=== PATIENT | female | born 1935 | race Caucasian/White ===

== ENCOUNTER 2018-10-29 10:40 | Inpatient (IN) ==
[2018-10-29] MEDS ORDERED: NS 1,000 ML IV ONE (11:06)
--- NOTE | 2018-10-29 11:23 | PROVIDER DOCUMENTATION ---
This chart was entered by Faith Hoffman Scribe, acting as scribe for Colette Real MD. HPI-Neurological Disorder - General Chief Complaint: Stroke-Like Symptoms Stated Complaint: POSS STROKE Time Seen by Provider: 10/29/18 10:56 Source: patient, family Allergies/Adverse Reactions: Patient Allergies Allergy/AdvReac Type Severity Reaction Status Date / Time codeine [Codeine] Allergy Severe RASH Verified 02/04/18 13:49 naproxen sodium * Allergy Severe SWELLING Verified 02/04/18 13:49 [From Aleve] red dye Allergy Severe RASH Verified 02/04/18 13:49 Sulfa (Sulfonamide Allergy Severe RASH Verified 02/04/18 13:49 Antibiotics) Home Medications: Home Medication List Medication Instructions Recorded Confirmed Last Taken Type Albuterol Sulfate Inhaler 2 puff INH QAM 03/17/13 11/18/16 11/18/16 10:00 History [Ventolin Hfa] Albuterol Sulfate [Proair Hfa] 8.5 gm IH HS 03/17/13 11/18/16 11/17/16 20:00 History Aspirin EC 81 mg PO DAILY 03/17/13 11/18/16 11/18/16 10:00 History Cholecalciferol (Vit D3) [Vitamin 2,000 unit PO DAILY 03/17/13 11/18/16 10:00 History D3] Cyanocobalamin S.l. [Vitamin B-12] 2,500 microgm SL DAILY 03/17/13 11/18/1603/29 10:00 History Folic Acid 1 mg PO DAILY 03/17/13 11/18/16 11/18/16 10:00 History Glipizide [Glipizide ER] 10 mg PO DAILY 03/17/13 11/18/16 11/18/16 10:00 History Insulin Glargine [Lantus] 20 unit SUBQ BID PC 03/17/13 11/18/16 11/18/16 10:00 History Metformin HCl [Metformin HCl ER] 1,000 mg PO BID 03/17/13 11/18/16 11/18/16 10: 00 History Cephalexin [Keflex] 500 mg PO Q6HR #28 capsule 11/07/16 11/18/16 11/18/16 10:00 Rx Ibuprofen [Motrin] 800 mg PO TID PRN #90 tablet 11/07/16 11/18/16 11/18/16 10: 00 Rx Methocarbamol [Robaxin] 500 - 1,000 mg PO BID PRN #120 11/07/16 11/18/16 10:00 Rx tablet Miconazole-3 Vaginal [Monistat 3] 1 supp VAG QHS #3 box 11/07/16 11/18/16 20:00 Rx Hydrocodone/APAP 7.5 mg/325 mg 1 each PO Q6H PRN PRN #10 tablet 11/13/1611/18/16 10:00 Rx [[place]ita-7.5] Hydrocodone/Acetaminophen [[place] 1 ea PO Q4-6H PRN PRN #20 tab 02/04/18 Unknown Rx 5-325 Tablet] - History of Present Illness-Neuro Nature of Presenting Problem: Patient is a 83 year old female who presents to the ED with stroke like symptoms. Patient states she started "feeling bad" around midnight last night. Patient states she could not talk right around that time. Patient's family states noticing the right side facial droop and abnormal gait this morning. Patient does not report headache. Headache Location: reports: other (no headache reported) Severity: reports: mild Onset/Duration: reports: last night Timing: reports: still present Context: reports: impaired speech (slurred), facial droop (right), other ( abnormal gait) Character of Altered Mental Status: reports: N/A Any recent trauma/injury?: reports: none Character of Deficits: reports: new weakness (right facial), impaired speech ( slurred) New weakness or altered sensation location:: reports: right facial Cognitive Baseline: alert, oriented x3 Associated Symptoms: reports: denies symptoms Similar Symptoms Previously?: No Recently seen or treated by another doctor?: No Review of Systems - Adult - REVIEW OF SYSTEMS - ADULT Constitutional: reports: no symptoms reported Eyes: reports: no symptoms reported Ears, Nose, Mouth & Throat: reports: no symptoms reported Cardiovascular: reports: no symptoms reported Respiratory: reports: no symptoms reported Gastrointestinal: reports: no symptoms reported Genitourinary: reports: no symptoms reported Musculoskeletal: reports: no symptoms reported Integumentary: reports: no symptoms reported Neurological: reports: slurred speech, other (right side facial droop and abnormal gait). denies: dizziness/vertigo, headache/migraines, numbness, seizure, syncope Psychiatric: reports: no symptoms reported Endocrine: reports: no symptoms reported Hematologic/Lymphatic: reports: no symptoms reported Allergic/Immunologic: reports: no symptoms reported All Other Systems: Reviewed and Negative Past History - Adult - PAST MEDICAL HISTORY-ADULT Review of Records: reports: Nursing Assessment Review, Medications Reviewed, Social history reviewed & non-contributory. Major Childhood Illnesses: reports: denies history Cardiovascular: reports: denies history Respiratory: reports: asthma Gastrointestinal: reports: cancer (colon) Obstetrical/Gynecological: reports: denies history Genitourinary: reports: denies history Musculoskeletal: reports: denies history Neurological: reports: denies history Psychiatric: reports: denies history Endocrine/Immune: reports: Diabetes Other Conditions: reports: denies history - PRIOR SURGERIES/PROCEDURES Surgical/Procedure History: reports: appendectomy, other - IMMUNIZATION STATUS Childhood Immunizations: See Nurse Assessment Flu Vaccine: See Nurse Assessment - FAMILY HISTORY Family History: reviewed, not pertinent - SOCIAL HISTORY Smoking: denies Substance Use: denies Living Situation: family Physical Exam- Neurological - Physical Exam-Neuro Exam Limited by: nothing Initial Vital Signs Reviewed: Yes General Appearance: appears well, alert, no apparent distress Eye Exam: bilateral eye: PERRL, EOMI HENMT: moist mucous membranes Head Injury: no evidence of injury Neck: supple Respiratory: lungs clear, normal breath sounds, no pleuratic chest pain, no respiratory distress Cardiovascular: normal peripheral pulses, regular rate, rhythm, no edema Abdominal Exam: non tender, soft Lymphatic: no adenopathy Extremity: non-tender, no pedal edema, 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 negative: normal speech, abnormal eye position, abnormal pupil position Motor/Sensory: pronator drift (R) (mild), weak motor strength RUE (mild), weak motor strength RLE (mild) Integumentary: normal color, normal turgor, warm/dry Psych/Mental Status: normal mood/affect, normal thought content, normal thought process, oriented x 3 - Glascow Coma Scale Best Eye Response: (4) open spontaneously Best Verbal Response: (5) oriented Best Motor Response: (6) obeys commands Total Glascow Score: 15 Progress - PLAN OF CARE/RESULTS Progress/Plan/Lab Results: Vital Signs - 8 hr 10/29/18 10:47 10/29/18 12:56 Temperature 97.9 F Pulse Rate 69 68 Respiratory Rate 20 16 Blood Pressure 171/083 167/55 O2 Sat by Pulse Oximetry 98 98 Laboratory Results - last 24 hr 10/29/18 10/29/18 10/29/18 11:06 11:06 11:06 WBC 10.66 RBC 4.34 Hgb 12.9 Hct 39.5 MCV 91.0 MCH 29.7 MCHC 32.7 L RDW Std Deviation 12.1 Plt Count 357 MPV 10.2 Immature Gran % (Auto) 0.2 Neut % (Auto) 60.5 Lymph % (Auto) 28.8 [place] % (Auto) 8.9 Eos % (Auto) 1.3 Baso % (Auto) 0.3 Immature Gran # (Auto) 0.02 Neut # (Auto) 6.45 Lymph # (Auto) 3.07 [place] # (Auto) 0.95 H Eos # (Auto) 0.14 Baso # (Auto) 0.03 PT 13.0 INR 0.94 Sodium 139 Potassium 4.2 Chloride 100 Carbon Dioxide 25 Anion Gap 14 BUN 21 Creatinine 0.8 Estimated GFR/1.73 m2 > 60 BUN/Creatinine Ratio 26 Glucose 162 H POC Glucose Calculated Osmolality 284 Calcium 9.2 Total Bilirubin 0.40 AST 28 ALT 11 Alkaline Phosphatase 91 Total Protein 6.9 Albumin 3.6 Globulin 3.0 Albumin/Globulin Ratio 1.0 10/29/18 11:29 WBC RBC Hgb Hct MCV MCH MCHC RDW Std Deviation Plt Count MPV Immature Gran % (Auto) Neut % (Auto) Lymph % (Auto) [place] % (Auto) Eos % (Auto) Baso % (Auto) Immature Gran # (Auto) Neut # (Auto) Lymph # (Auto) [place] # (Auto) Eos # (Auto) Baso # (Auto) PT INR Sodium Potassium Chloride Carbon Dioxide Anion Gap BUN Creatinine Estimated GFR/1.73 m2 BUN/Creatinine Ratio Glucose POC Glucose 169 H D Calculated Osmolality Calcium Total Bilirubin AST ALT Alkaline Phosphatase Total Protein Albumin Globulin Albumin/Globulin Ratio Orders Category Date Time Status Finger Stick Blood Sugar (ED) DIRECTED Care 10/29/18 11:04 Active IV [Saline Loc] NOW Care 10/29/18 11:05 Active NPO Diet 10/29/18 11:[address] HEAD W/O CONTRAST [CT] Stat Exams 10/29/18 11:04 Completed CBC WITH ELECTRONIC DIFF [HEME] Stat Lab 10/29/18 11:06 Completed COMPREHENSIVE METABOLIC PANEL [CHEM] Stat Lab 10/29/18 11:06 Completed PT [PROTIME WITH INR] [COAG] Stat Lab 10/29/18 11:[address] W/POSS RFLX CULT [URINALYSIS] Stat Lab 10/29/18 11:03 Uncollected 0.9% Sodium Chloride Inj [Ns] 1,000 ml Med 10/29/18 11:06 Active IV 150 mls/hr Aspirin Med 10/29/18 12:[address] NOW ONE Swallow Evaluation [OM.SPT] Stat Ther 10/29/18 13:08 Active per pt who with questioning is a&o x 3 and appropriate and answers questions well, says she noticed slurred speech around midnight, son noticed it when he woke up around 8am, pt said she was trying to work her puzzle this am and having trouble, right facial droop with RUE and RLE mild weakness, moderate tremors in RUE and mild tremors in LUE when raise arms against gravity, speech is slurred, tongue is midline this patient is not a candidate for tPA due to late presentation and out of 3 hour window, due to age would not qualify for 4.5 hour window either widespread microvascular disease without current evidence of infarct, not allergic to ASA, swallow study not done yet so will give ASA pr work up done, 1309 spoke w Devine [facility] PMH exam results treatment, agreed to admit Result Diagrams: 10/29/18 11:06 10/29/18 11:06 - EKG 1 Time of EKG reading by physician:: 11:26 EKG Read and Signed by:: Colette Real EKG Interpretation (*Must complete 3 of following elements*): Normal Rate: 70 Rhythm: normal sinus rhythm Comments: normal ECG - CT/MRI 1 CT Study: Head Impression: See EMR Report ( CT HEAD W/O CONTRAST - 10/29/2018 INDICATION: cva COMPARISON: 11/13/2016 FINDINGS: There is mild worsening in the diffuse cerebral atrophy and chronic microvascular disease. No intracranial mass or hemorrhage. The skull is intact. The sinuses are clear. IMPRESSION: Worsening chronic changes. No acute process visible. This exam was performed using automated exposure control, adjustment of mA or kV according to patient size, and/or use of iterative reconstruction technique Electronically signed by Jordan Andrew 10/29/2018 11:43 AM 10/29/18 1143 Interpreting Physician: Jordan Andrew MD Dictated Date/Time: 10/29/18 1141 cc: Colette Real MD;) - CONSULTS/PCP/HOSPITALIST Notification #1 *Consult/PCP/Hospitalist*: Dr. Devine Time Discussed: 13:06 Reason/Comments: Dr. Real consulted with Dr. Devine about patient. Consult Disposition: Will see in ED, Admit Departure - Departure Date of Disposition Decision: 10/29/18 Time of Disposition Decision: 12:59 DIAGNOSIS: CVA (cerebral vascular accident) Qualifiers: CVA mechanism: unspecified Qualified Code(s): I63.9 - Cerebral infarction, unspecified Disposition: ADMITTED INPATIENT 09 Certified Medical Emergency: Emergent Condition: Good Additional Freetext Instructions: Admit to Dr Devine 13:08 Referrals and Follow-Ups: Becka Helton MD [Primary Care Provider] - - Critical Care Note This patient required my direct & personal management of CC.: No Attestation - Physician/ SANA Attestation The physician spent face to face time with patient:: Yes Advanced Practice Provider documentation review:: Supervising physician onsite and consulted in the evaluation and care of this patient. The physician did have a face to face encounter with the patient. This chart was documented by the indicated scribe, (Faith Hoffman Scribe) and accurately reflects the services I performed and decisions made by me, Colette Real MD, as attested by the provider's signature.
[2018-10-29 11:27] LABS: BASO# 0.03 X1000 (0.0-0.2); BASO% 0.3 % (0.0-0.8); EOS# 0.14 X1000 (0.0-0.7); EOS% 1.3 % (0.0-10.0); HEMATOCRIT 39.5 % (37.0-47.0); HEMOGLOBIN 12.9 g/dL (12.0-16.0); IMM GRAN# 0.02 X1000 (0.0-0.04); IMM GRAN% 0.2 % (0.0-0.5); LYMPH# 3.07 X1000 (1.2-3.4); LYMPH% 28.8 % (20.5-51.1); MCH 29.7 PG (27-31); MCHC 32.7 g/dL (33-37); MONO# 0.95 X1000 (0.11-0.59); MONO% 8.9 % (1.7-9.3); MPV 10.2 FL (7.4-10.4); NEUT# 6.45 X1000 (1.4-6.5); NEUT% 60.5 % (42.2-75.2); PLT 357 X1000 (130-400); RBC 4.34 XMIL (4.2-5.4); RDW 12.1 % (11.5-14.5); WBC 10.66 X1000 (4.8-10.8)
[2018-10-29 11:41] LABS: INR 0.94
--- NOTE | 2018-10-29 11:46 | Diag Imaging Result Doc PS360 ---
CT HEAD W/O CONTRAST - 10/29/2018 INDICATION: cva COMPARISON: 11/13/2016 FINDINGS: There is mild worsening in the diffuse cerebral atrophy and chronic microvascular disease. No intracranial mass or hemorrhage. The skull is intact. The sinuses are clear. IMPRESSION: Worsening chronic changes. No acute process visible. This exam was performed using automated exposure control, adjustment of mA or kV according to patient size, and/or use of iterative reconstruction technique Electronically signed by Jordan Andrew 10/29/2018 11:43 AM
[2018-10-29 11:47] LABS: AGAP 14; ALBUMIN 3.6 g/dL (3.5-5.0); ALKALINE PHOSPHATASE 91 U/L (32-104); BUN 21 mg/dL (8-22); CALCIUM 9.2 mg/dL (8.8-10.2); CHLORIDE 100 mmol/L (98-107); COSMO 284; CREATININE 0.8 mg/dL (0.5-0.9); ESTIMATED GFR > 60; GLUCOSE 162 mg/dL (70-104); GOT 28 U/L (10-30); GPT 11 U/L (10-36); POTASSIUM 4.2 mmol/L (3.5-5.1); SODIUM 139 mmol/L (136-145); TCO2 25 mmol/L (25-35); TOTAL PROTEIN 6.9 g/dL (6.3-8.3)
[2018-10-29] MEDS ORDERED: ASPIRIN PR ONE (12:28)
[2018-10-29 13:49] LABS: BILIRUBIN URINE NEGATIVE (NEGATIVE); BLOOD URINE TRACE (NEGATIVE); CLARITY SL. CLOUDY (CLEAR); COLOR YELLOW; KETONE URINE 1+(Small) mg/dL (NEGATIVE); LEUKOCYTES URINE 2+ (NEGATIVE); NITRITE URINE POSITIVE (NEGATIVE); PH URINE 6.5; PROTEIN URINE NEGATIVE (NEGATIVE); SP GRAVITY URINE 1.015; UROBILINOGEN URINE NORMAL
[2018-10-29 14:03] LABS: URINE BACTERIA 3+ /HFP; URINE EPITHELIAL CELLS >10 /HPF (<10); URINE RBC <10 /HPF (<10); URINE SOURCE CLEAN CATCH
[2018-10-29] MEDS ORDERED: ZOFRAN IV PRN (15:32)
[2018-10-29] MEDS: HUMULIN R (PARKWAY) SUBQ SCH (20:59)
[2018-10-29] MEDS: LIPITOR PO SCH (21:00)
[2018-10-29] MEDS: ROCEPHIN 1 GM in NS 50 ML IV SCH (23:10)
--- NOTE | 2018-10-29 23:26 | HISTORY AND PHYSICAL ---
PRIMARY CARE PHYSICIAN: Dr. Helton. CHIEF COMPLAINT: Difficulty walking, some right-sided facial drooping and some difficulty speaking that began around midnight last night and was still present around 8 a.m. this morning. HISTORY OF PRESENTING ILLNESS: This is an 83-year-old female who presents to [facility] ER with her son stating that she began noticing right-sided facial drooping and difficulty walking that began around midnight last night, is having difficulty finding her words. Once she does get started talking, she is able to keep the conversation coherent and but she does have some difficulty initially finding her words at the start of a conversation. She is noted to have some right-sided facial drooping. She states that she has had some blurred vision and dizziness. She is also noted to have diabetes, so it is unclear if she had this prior, but she does say the blurred vision got worse since having the symptoms. Her workup in the emergency room showed a blood pressure on arrival of 171/83. CT of the head showed worsening chronic changes but no acute process visible so she is going to be admitted for further evaluation and treatment. PAST MEDICAL HISTORY: Diabetes type 2. PAST SURGICAL HISTORY: Appendectomy and colon cancer with colon resection. FAMILY HISTORY: Reviewed and noncontributory. SOCIAL HISTORY: She currently lives with her son. Denies any tobacco, alcohol or illicit drug use. ALLERGIES: Codeine, Aleve, red dye and sulfa drugs. HOME MEDICATIONS: A current list will need to be obtained and verified and will be restarted after reviewed. We will place a nursing order to update and confirm medications. LABORATORY DATA: White blood cell count of 10.66, hemoglobin 12.9, hematocrit 39.5, platelets 357,000. PT and INR of 13 and 0.94. Sodium 139, potassium 4.2, chloride 100, CO2 25, BUN of 21, creatinine 0.8, glucose 162. CT of the head showed worsening chronic changes but no acute process visible. REVIEW OF SYSTEMS: She denied any fever, chills. She did have some blurred vision and dizziness that has worsened since these symptoms began. She had some right-sided facial drooping, slurred speech. She denied any chest pain, coughing, shortness of breath. She denied any abdominal pain, constipation, diarrhea, burning or hurting with urination. PHYSICAL EXAMINATION: VITAL SIGNS: On arrival, she had a temperature of 97.9 degrees, pulse 69, respirations 20, blood pressure 171/83, saturating 98% on room air. GENERAL: This is an 83-year-old female who is lying in the bed, able answer questions. Again, she has some difficulty initiating the conversation with some mild aphasia, but once she starts talking she is able to keep the conversation flowing appropriately. She does have some right-sided facial drooping also noted. HEENT: She is noted again to have some right-sided facial drooping, some mild aphasia. Normal ENT inspection. Oropharynx and nares are clear. Eyes: Pupils are equal, round, reactive to light and accommodation. Extraocular movements are intact. NECK: Normal inspection. Normal range of motion. LUNGS: Clear to auscultation bilaterally with equal lung expansion and chest wall movement. HEART: Regular rate and rhythm. No murmurs, rubs, or gallops. ABDOMEN: Soft, nontender, nondistended. Bowel sounds are present x4 quadrants. MUSCULOSKELETAL: She has 5/5 strength x4 extremities. NEUROLOGICAL: The cranial nerves 2-12 appear grossly intact. Again, her only deficits appear to be some mild right-sided facial drooping and some mild aphasia. ASSESSMENT: 1. Transient ischemic attack versus cerebrovascular accident. 2. Diabetes type 2. 3. Dizziness. 4. Blurred vision. PLAN: She will be admitted to the medical unit at [facility]. Held NPO for a swallowing evaluation. We are going to check an MRI of the brain without contrast. We will do an echocardiogram and a carotid Doppler. We are going to check a lipid profile today. We need nursing to update and confirm home medications and we will review and restart as appropriate. Then, we will check a CBC, BMP in the a.m. and further orders after being seen by attending. Dictated by NEYMAR Cantu for Chalo Ny MD cc: NEYMAR Cantu MD Hiteshri S. Bhavsar, MD
--- NOTE | 2018-10-30 02:21 | HISTORY AND PHYSICAL ---
ADDENDUM: The patient was seen and examined by me face to face. All the laboratory, vital signs and images were reviewed. The patient presented to the emergency department with stroke-like symptoms, actually she presented with some facial weakness. There is facial drooping, but she is able to answer all my questions. She has severe weakness at the level of the upper and lower extremities, she is 83 years old and I am not quite sure if she is able to walk or not, but apparently she had some abnormal gait this morning. She is a poor historian and no family members at the bedside at this moment. Laboratories looks stable with some high cholesterol, triglycerides and glucose. I will ask for a hemoglobin A1c in the morning. I see that she has been on insulin at home, but since she is n.p.o. I will do a sliding scale insulin and pattern of blood sugar, and I will get a formal swallow evaluation in the morning. She is not complaining of headache or chest pain. Some abdominal discomfort on the left side but her abdomen is benign. I have placed this patient on aspirin and Lipitor as well. I will not treat the high blood pressure, I will allow permissive hypertension. I will ask for a PT/OT evaluation as soon as we can. Likely this patient will need to go to a rehabilitation center. We will get an MRI in the morning to have a better picture of the lesion. I agree with the rest of the nurse practitioner's assessment and plan. cc: Chalo Ny MD
[2018-10-30] MEDS: NEXIUM PO SCH (06:04)
[2018-10-30 06:06] LABS: BASO# 0.02 X1000 (0.0-0.2); BASO% 0.2 % (0.0-0.8); EOS% 2.3 % (0.0-10.0); HEMATOCRIT 37.2 % (37.0-47.0); HEMOGLOBIN 11.9 g/dL (12.0-16.0); IMM GRAN# 0.02 X1000 (0.0-0.04); IMM GRAN% 0.2 % (0.0-0.5); LYMPH# 2.72 X1000 (1.2-3.4); MCH 29.6 PG (27-31); MCV 92.5 FL (81-99); MONO# 0.85 X1000 (0.11-0.59); MONO% 9.7 % (1.7-9.3); MPV 10.3 FL (7.4-10.4); NEUT# 4.97 X1000 (1.4-6.5); NEUT% 56.6 % (42.2-75.2); PLT 318 X1000 (130-400); RBC 4.02 XMIL (4.2-5.4); WBC 8.78 X1000 (4.8-10.8)
[2018-10-30 06:13] LABS: HEMOGLOBIN A1C 11.8 % (4.8-6.0)
[2018-10-30 06:34] LABS: AGAP 11; BUN 15 mg/dL (8-22); CALCIUM 8.6 mg/dL (8.8-10.2); CHLORIDE 105 mmol/L (98-107); COSMO 285; CREATININE 0.7 mg/dL (0.5-0.9); ESTIMATED GFR > 60; GLUCOSE 120 mg/dL (70-104); SODIUM 142 mmol/L (136-145); TCO2 26 mmol/L (25-35)
[2018-10-30] MEDS: HUMULIN R (PARKWAY) SUBQ SCH ×4 (06:42→20:21)
[2018-10-30] MEDS: FOLIC ACID PO SCH (08:51)
[2018-10-30] MEDS: ASPIRIN EC PO SCH (08:51)
--- NOTE | 2018-10-30 09:04 | PROGRESS NOTE ---
DATE: 10/30/2018 SUBJECTIVE: The patient is lying comfortably in bed. She is not complaining of any pain at this moment. She does have some right facial deviation, mild aphasia, and slurred speech. I have requested a speech therapy evaluation and a swallow evaluation as well, pending MRI of the head. OBJECTIVE: Vital Signs: Temperature 98.4 degrees, pulse 71, respiratory rate 16, blood pressure 148/57, oxygen saturation 99 on room air. HEENT: Head normocephalic. No trauma. PERRLA. Right facial deviation with some aphasia, mild slurred speech. Neck: Supple. No JVD. Central trachea. Chest: Clear to auscultation. No wheezing. No rales. Cardiovascular: RRR. Extremities: No edema. No clubbing. No cyanosis. Neurological: The patient is alert. She is oriented x3. She knows she is in the hospital. She does not remember which one. Probably, she has some mild dementia. But at this moment, she is answering all my questions and following commands. Extremities: I do not see any focal weakness because she has generalized weakness, around 3 to 4/5 all 4 extremities. I will get physical therapy to evaluate that as well. LABORATORY: WBC 8.7, hemoglobin 11.9, hematocrit 37.2, platelets 318,000. Sodium 142, potassium 4, chloride 105, bicarbonate 25, BUN 15, creatinine 0.7, glucose 120. Hemoglobin A1c 11.8, calcium 8.6. ASSESSMENT AND PLAN: 1. Likely cerebrovascular accident, ischemic, pending MRI of the head to corroborate this information. She does have some right-sided facial weakness. She needs to be evaluated by a physical therapy and occupational therapy as well as speech therapy. Probably, this patient will need to go to a rehab center. I will get the stroke protocol, includes carotid ultrasound, echocardiogram, MRI, and I will monitor. 2. Type 2 diabetes, uncontrolled. Hemoglobin A1c is elevated at 11.8. The blood sugar seems to be stable in the hospital. I will continue with pattern of blood sugar and sliding scale insulin. 3. Hyperlipidemia. I have placed this patient on Lipitor during the night. Cholesterol level is elevated at 235 and triglyceride 203. 4. Blurred vision. I am not quite sure if this is new or old, and she does not remember exactly if she had that issue before. She is 83-year-old, and like I said, probably she has mild dementia. 5. Possible dementia. Aware. I do not have any family members at the bedside at this moment to corroborate this information. cc: Chalo Ny MD
[2018-10-30] MEDS: D5 1/2 NS 1,000 ML IV SCH (09:13)
--- NOTE | 2018-10-30 10:24 | EKG Report ---
Test Performed on : 10/29/2018 11:26:02 AM Test Reason : STOKE LIKE SYMP Blood Pressure : / mmHG Vent. Rate : 070 BPM Atrial Rate : 070 BPM P-R Int : 164 ms QRS Dur : 070 ms QT Int : 414 ms P-R-T Axes : 038 046 065 degrees QTc Int : 447 ms Normal sinus rhythm. Normal ECG No previous ECGs available Unconfirmed Result
--- NOTE | 2018-10-30 12:02 | Diag Imaging Result Doc PS360 ---
EXAM: MRI BRAIN W/O CONTRAST - 10/30/2018 HISTORY: TIA vs CVA TECHNIQUE: MRI brain without contrast. No contrast administered per request of the referring provider. COMPARISON: 10/29/2018 CT head without contrast FINDINGS: There is an approximately 2.5 cm in AP dimension by up to 1 cm in transverse dimension area of restricted diffusion on the diffusion-weighted images. This is located and periventricular white matter on the left adjacent to the body of the left lateral ventricle. This also appears to involve the nearby posterior superior aspect of the left basal ganglia. This is consistent with acute infarct. The diffusion weighted images show no other areas of restricted diffusion (no other acute infarct). There are chronic microvascular ischemic changes in bilateral white matter. There is no evidence of intracranial hemorrhage, mass effect, or midline shift. IMPRESSION: Approximately 2.5 x 1 cm acute infarct which involves periventricular white matter and nearby posterior superior basal ganglia on the left. Chronic microvascular ischemic changes. No hemorrhage or mass effect. This report was discussed with Dr. Devine on 10/30/2018 at 11:58 AM and was readback. Electronically signed by Ismael Sky 10/30/2018 12:00 PM
--- NOTE | 2018-10-30 14:48 | Extremity Venous Study ---
EXAM: Carotid Ultrasound - 10/29/2018 HISTORY: TIA vs CVA TECHNIQUE: Carotid flow studies COMPARISON: None. FINDINGS: There is mild smooth atherosclerotic plaquing at the proximal right internal carotid. Maximal systolic velocity right internal carotid is 99 cm/s, and maximum diastolic velocity is 24 cm/s. The right internal to common carotid systolic velocity ratio is 1.46. The flow velocities and ratio are consistent with 0-39% stenosis at the right internal carotid. The right vertebral demonstrates antegrade flow. The left internal carotid is occluded at its origin, and shows no flow. The left vertebral demonstrates antegrade flow. IMPRESSION: 0-39% stenosis at right internal carotid. 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 This report was discussed with Dr. Devine on 10/30/2018 at 2:45 PM and was readback. Electronically signed by Ismael Sky 10/30/2018 2:46 PM
[2018-10-30] MEDS: THERA M PLUS PO SCH (16:42)
[2018-10-30] MEDS: SYMBICORT 80/4.5 MICROGM INHALER INH SCH (19:37)
[2018-10-30] MEDS: ROCEPHIN 1 GM in NS 50 ML IV SCH (20:20)
[2018-10-30] MEDS: LIPITOR PO SCH (20:20)
[2018-10-31] MEDS: D5 1/2 NS 1,000 ML IV SCH ×2 (05:48→21:07)
[2018-10-31] MEDS: HUMULIN R (PARKWAY) SUBQ SCH ×4 (06:22→20:26)
[2018-10-31] MEDS: NEXIUM PO SCH (06:22)
[2018-10-31] MEDS: SYMBICORT 80/4.5 MICROGM INHALER INH SCH ×2 (08:10→19:35)
[2018-10-31 08:13] LABS: AGAP 10; ALBUMIN 2.8 g/dL (3.5-5.0); ALKALINE PHOSPHATASE 80 U/L (32-104); BUN 13 mg/dL (8-22); CALCIUM 8.3 mg/dL (8.8-10.2); CHLORIDE 102 mmol/L (98-107); COSMO 282; CREATININE 0.8 mg/dL (0.5-0.9); ESTIMATED GFR > 60; GLUCOSE 275 mg/dL (70-104); GOT 14 U/L (10-30); GPT 7 U/L (10-36); POTASSIUM 3.8 mmol/L (3.5-5.1); SODIUM 136 mmol/L (136-145); TCO2 24 mmol/L (25-35); TOTAL PROTEIN 6.3 g/dL (6.3-8.3)
[2018-10-31] MEDS: THERA M PLUS PO SCH (09:24)
[2018-10-31] MEDS: FOLIC ACID PO SCH (09:24)
[2018-10-31] MEDS: ASPIRIN EC PO SCH (09:24)
--- NOTE | 2018-10-31 11:52 | PROGRESS NOTE ---
DATE: 10/31/2018 SUBJECTIVE: The patient is lying in bed and denies having any acute complaints, although she is very quiet and not very communicative. OBJECTIVE: Vital signs: Temperature is 98 degrees, pulse 72 per minute, respiratory rate 18 per minute, blood pressure 141/50, pulse oximetry 98% on room air. General: The patient is alert and oriented x3. She does not appear to be in any acute distress. Cardiovascular: First and second heart sounds are audible without any murmurs, rubs, or gallops. Respiratory: No respiratory distress noted. Bilateral lung air entry is good without any rales or rhonchi. Gastrointestinal: Abdomen is soft and nondistended. It is nontender on palpation, and normal bowel sounds are present. Musculoskeletal: No deformities are present. Neurologic: The patient has left-sided motor weakness that is 3/5. DIAGNOSTIC DATA: CBC and BMP are nondiagnostic except for glucose that was 275. MRI of the brain done yesterday showed approximately 2.5 into 1 cm acute infarct which involves periventricular white matter and nearby posterior superior basal ganglia on the left. Urinalysis showed 10 to 20 WBCs on high-power field. IMPRESSION: 1. Acute cerebrovascular accident. 2. Urinary tract infection. 3. Type 2 diabetes mellitus. 4. Dyslipidemia. PLAN: 1. The patient will be continued on oral aspirin and will also continue with physical therapy. Swallowing study and evaluation has been ordered already. 2. The patient will continue with ceftriaxone IV for her urinary tract infection. 3. The patient has dyslipidemia for which she will continue with atorvastatin orally. I will increase the dose of atorvastatin to 40 mg a day, however. 4. Type 2 diabetes mellitus for which we will continue with Lispro insulin as per sliding scale. 5. The patient will continue with physical therapy and will try to see if she can be discharged to rehab facility some time next week. cc: MD Chalo Cantu MD
[2018-10-31] MEDS: ROCEPHIN 1 GM in NS 50 ML IV SCH (20:25)
[2018-10-31] MEDS: LIPITOR PO SCH (20:26)
[2018-10-31] MEDS: NS 1,000 ML IV SCH (23:31)
--- NOTE | 2018-10-31 23:47 | ECHO REPORT ---
ORDER DATE: 10/30/2018 INDICATIONS: CVA. FINDINGS: 1. Right atrium appears normal in size. 2. Trace tricuspid regurgitation. Insufficient data to estimate RV systolic pressure. 3. Normal RV size and systolic function. 4. No significant pulmonic insufficiency. 5. Normal left atrial size at 3 cm. 6. No mitral valve prolapse. There is mild mitral annular calcification. Mild mitral regurgitation. 7. Normal LV size. There is no evidence of left ventricular hypertrophy. Endocardial border thicknesses are extremely difficult to measure secondary to poor resolution of the endocardial borders. Normal LV systolic function. The estimated EF is on the order of 60% to 65% with normal wall motion. 8. Aortic valve opens well. Trace insufficiency. No stenosis. 9. Aorta appears normal in visualized segments. 10. No pericardial effusion seen. cc: MD Zayda Cortez CRNP Omar J. Sosa-Chirinos, MD
[2018-11-01] MEDS: NEXIUM PO SCH (06:09)
[2018-11-01] MEDS: HUMULIN R (PARKWAY) SUBQ SCH ×4 (06:36→23:24)
[2018-11-01] MEDS: SYMBICORT 80/4.5 MICROGM INHALER INH SCH ×2 (07:51→19:53)
[2018-11-01] MEDS: ASPIRIN EC PO SCH (08:13)
[2018-11-01] MEDS: FOLIC ACID PO SCH (08:13)
[2018-11-01] MEDS: THERA M PLUS PO SCH (08:13)
--- NOTE | 2018-11-01 10:14 | PROGRESS NOTE ---
DATE: 11/01/2018 SUBJECTIVE: The patient denies having any acute complaints this morning and she feels much better. OBJECTIVE: Vital Signs: Temperature 98.8 degrees, pulse 73 per minute, respiratory rate 18 per minute, blood pressure 149/51, pulse oximetry 93% on room air. General: The patient is alert and oriented x3. She does not appear to be in any acute distress. Cardiovascular System: First and second heart sounds are audible without any murmurs or gallops. Respiratory System: No respiratory distress noted. Bilateral lung air entry is good without any rales or rhonchi. Gastrointestinal System: Abdomen is soft and nondistended. It is nontender on palpation and normal bowel sounds are present. Neurologic: Mild left-sided motor weakness is present in the left upper and left lower extremities. No other focal deficits are present. Diagnostic Data: Urine culture grew Klebsiella species that is widely sensitive to different antibiotics including ceftriaxone, Bactrim, and levofloxacin. IMPRESSION: 1. Acute cerebrovascular accident. 2. Urinary tract infection secondary to Klebsiella. 3. Type 2 diabetes mellitus. 4. Dyslipidemia. PLAN: 1. The patient will be continued on oral aspirin and we will also continue him to get IV ceftriaxone for a urinary tract infection. 2. Patient has been having type 2 diabetes mellitus, for which we will continue with insulin as per sliding scale. 3. Patient will continue with atorvastatin for her dyslipidemia. 4. We are going to continue with physical therapy and most likely she will be discharged to rehab for physical therapy in the next 1 to 2 days. cc: MD Chalo Cantu MD
[2018-11-01] MEDS: NS 1,000 ML IV SCH (11:35)
[2018-11-01] MEDS: TYLENOL PO PRN ×2 (13:54→20:37)
[2018-11-01] MEDS: ROCEPHIN 1 GM in NS 50 ML IV SCH (20:26)
[2018-11-01] MEDS: LIPITOR PO SCH (20:26)
[2018-11-01] MEDS: GLUCOPHAGE XR PO SCH (20:26)
[2018-11-02] MEDS: NS 1,000 ML IV SCH ×2 (01:33→14:14)
[2018-11-02] MEDS: NEXIUM PO SCH ×2 (05:50→06:19)
[2018-11-02] MEDS: HUMULIN R (PARKWAY) SUBQ SCH ×2 (06:39→11:22)
[2018-11-02] MEDS ORDERED: VITAMIN B-12 PO SCH (09:00)
[2018-11-02] MEDS ORDERED: VITAMIN D PO SCH (09:00)
--- NOTE | 2018-11-02 09:10 | PROGRESS NOTE ---
DATE: 11/02/2018 SUBJECTIVE: The patient denies having any acute complaints this morning. She still has not been able to walk because of generalized weakness. OBJECTIVE: Vital Signs: Temperature 97.7 degrees, pulse 74 per minute, respiratory rate 18 per minute, blood pressure 151/60, pulse oximetry 96% on room air. General: The patient is alert and oriented x3. Cardiovascular System: First and second heart sounds are audible without any murmurs or gallops. Respiratory System: No respiratory distress noted. Bilateral lung air entry is good without any rales or rhonchi. Gastrointestinal System: Abdomen is soft and nondistended. Normal bowel sounds are present. Neurologic: Left-sided upper and lower extremity mild motor weakness is still present. Diagnostic Data: No new labs have been done this morning. IMPRESSION: 1. Acute cerebrovascular accident. 2. Urinary tract infection secondary to Klebsiella. 3. Type 2 diabetes mellitus. 4. Dyslipidemia. PLAN: The patient will continue to get oral aspirin along with IV ceftriaxone and care for her diabetes. She will be continued on atorvastatin for dyslipidemia and also will continue with physical therapy. We are ready for her to be transferred out of the hospital and, therefore, I have placed a request for psychotherapist social worker to arrange rehab transfer whenever a bed is available. cc: MD Chalo Cantu MD
[2018-11-02] MEDS: SYMBICORT 80/4.5 MICROGM INHALER INH SCH (10:46)
[2018-11-02] MEDS: THERA M PLUS PO SCH (11:21)
[2018-11-02] MEDS: FOLIC ACID PO SCH (11:21)
[2018-11-02] MEDS: GLUCOPHAGE XR PO SCH (11:21)
[2018-11-02] MEDS: ASPIRIN EC PO SCH (11:21)
--- NOTE | 2018-11-02 12:32 | Diag Imaging Result Doc PS360 ---
CHEST-PORTABLE - 11/02/2018 INDICATION: Required for SNF placement COMPARISON: 02/04/2018 FINDINGS: The lungs are normally expanded and clear. Heart size and mediastinal contours are normal. No pneumothorax or pleural effusion. IMPRESSION: Negative exam. Electronically signed by Jordan Andrew 11/02/2018 12:29 PM
--- NOTE | 2018-11-02 14:40 | DISCHARGE SUMMARY ---
ADMISSION DATE: 10/30/2018 DISCHARGE DATE: 11/02/2018 DIAGNOSES: 1. Acute cerebrovascular accident. 2. Urinary tract infection secondary to Klebsiella. 3. Diabetes mellitus type 2. 4. Dyslipidemia. DIAGNOSTICS: 1. 10/29/2018 CT of the head reveals mild worsening in the diffuse cerebral atrophy and chronic microvascular disease. No intracranial mass or hemorrhage. Skull is intact. Sinuses are clear. 2. Carotid Doppler study 0 to 39% stenosis at the right internal carotid. 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 Left vertebral demonstrates antegrade flow. 3. Echocardiogram reveals ejection fraction of 60 to 65 percent with normal LV systolic function, normal wall motion. 4. 10/30/2018 MRI of the brain without contrast revealed a 2.5 x 1 cm acute infarct which involves periventricular white matter and nearby posterior superior basal ganglia on the left, chronic microvascular ischemic changes. No hemorrhage or mass effect. 5. Microbiology. Urine culture revealed Klebsiella oxytoca ESBL negative. HOSPITAL COURSE: Ms Griffin presented to the emergency room with difficulty walking, right side facial drooping and difficulty speaking that had been present about 8 hours. She was found to have an acute infarct involving periventricular white matter and nearby posterior superior basal ganglia on the left. Echocardiogram and carotid Doppler as stated above. The patient has complained of no pain. She continues with some mild aphasia and slurred speech. She was evaluated by speech therapy as well as PT and OT. She has been placed on a mechanical soft diet per speech therapist recommendation. She continues with PT and OT. She was found to have a Klebsiella UTI for which she received IV Rocephin and she will be discharged on Levaquin for 3 days which will complete 8 days of antibiotics. Blood sugars have been followed a.c. and at bedtime. She is receiving sliding scale insulin. She is not eating very well, just 25 to 50 percent of her trays therefore we will not continue her 70/30 insulin b.i.d. as before. She will be given 10 units of 70/30 in the morning and blood sugars can be followed and then insulins can be increased by the facility regional medical director as her p.o. intake increases. DISCHARGE PHYSICAL EXAMINATION: Vital Signs: Blood pressure is 152/50 with a heart rate of 78, respirations 18, temperature 98.1 degrees, O2 saturations are 98% on room air. General: This is an 83-year-old patient who is sitting up in the bed with no complaints. Cardiovascular: Regular rate and rhythm. S1 and S2 appreciated. Pulmonary: Breath sounds are clear with no increased work of breathing noted. Gastrointestinal: Abdomen is soft, nontender, nondistended with bowel sounds in all 4 quadrants. Genitourinary: She has no CVA nor suprapubic tenderness. Neurologic: She is awake, she is alert with continued left-sided weakness. DISCHARGE MEDICATIONS: 1. Enteric-coated aspirin 81 mg p.o. daily. 2. Symbicort 80/4.5 one puff b.i.d. 3. Vitamin D3 2000 units p.o. daily. 4. Vitamin B12 1000 mcg p.o. daily. 5. Nexium 40 mg p.o. daily. 6. Folic acid 1 mg p.o. daily. 7. Metformin ER 1000 mg p.o. b.i.d. 8. Atorvastatin 40 mg p.o. at bedtime. 9. Humulin insulin 70/30 10 units subcu q.a.m. 10. Thera M Plus vitamin 1 p.o. daily. 11. Levaquin 500 mg p.o. daily to start the for 3 days ending 11/05/2018. 12. Sliding scale blood sugar 200-249 2 units, 250 to 299 4 units, 300 to 349 6 units, greater than 350 8 units. She is being discharged in transfer to rehab in stable condition. TIME SPENT: Greater than 30 minutes. Dictated by NEYMAR Cobian for Griselda Clement MD This chart was documented by, NEYMAR Cobian and accurately reflects the services performed, treatment plan and medical decisions as attested by the providers signature Griselda Clement MD. cc: NEYMAR Cobian MD Omar J. Sosa-Chirinos, MD Patient was seen by me face to face. The case was discussed in detail and I fully agree with the aforementioned assessment/plan. MD TOMER Cantu
[2018-11-02 15:21] VITALS: BP 153/59
== END 2018-11-02 15:57 | DRG 65 ==
LOC: P.MEDSURG 10:40 → P.ED 10:40 → SUATTDRO 15:08
PROVIDERS: ADMIT Internal Medicine; ATTEND Internal Medicine
CPT/HCPCS: 70450; 70551; 71010; 71045; 80048; 80053; 80061; 81001; 82948; 83036; 83721; 85025; 85610; 87077; 87088; 87186; 92523; 93005; 93306; 93880; 94640; 94760; 96360; 96361; 97163; 97165; 97530; 97535; 99285; A9270; J0696; J1815; J7030; XXXXX

== ENCOUNTER 2019-03-25 16:10 | Inpatient (IN) ==
[2019-03-25 17:01] LABS: URINE SOURCE CATH
[2019-03-25] MEDS ORDERED: GENTAMICIN 100 MG/NS 100 MG/100 ML IVPB IV ONE (17:01)
[2019-03-25 17:10] LABS: BASO# 0.06 X1000 (0.0-0.2); BASO% 0.4 % (0.0-0.8); EOS# 0.36 X1000 (0.0-0.7); EOS% 2.2 % (0.0-10.0); HEMATOCRIT 37.4 % (37.0-47.0); HEMOGLOBIN 12.5 g/dL (12.0-16.0); IMM GRAN# 0.06 X1000 (0.0-0.04); IMM GRAN% 0.4 % (0.0-0.5); LYMPH# 6.62 X1000 (1.2-3.4); LYMPH% 39.8 % (20.5-51.1); MCH 30.9 PG (27-31); MCHC 33.4 g/dL (33-37); MCV 92.3 FL (81-99); MPV 10.3 FL (7.4-10.4); NEUT# 8.04 X1000 (1.4-6.5); NEUT% 48.2 % (42.2-75.2); PLT 518 X1000 (130-400); RBC 4.05 XMIL (4.2-5.4); RDW 12.9 % (11.5-14.5); WBC 16.64 X1000 (4.8-10.8)
[2019-03-25 17:18] LABS: BILIRUBIN URINE NEGATIVE (NEGATIVE); BLOOD URINE NEGATIVE (NEGATIVE); COLOR YELLOW; GLUCOSE URINE NEGATIVE (NEGATIVE); KETONE URINE 10 mg/dL (NEGATIVE); LEUKOCYTES URINE NEGATIVE (NEGATIVE); NITRITE URINE NEGATIVE (NEGATIVE); PROTEIN URINE TRACE mg/dL (NEGATIVE); TURBIDITY URINE CLEAR (CLEAR); UROBILINOGEN URINE NORMAL (NORMAL)
[2019-03-25 17:19] LABS: INR 0.87; PROTIME 12.6 Seconds (11.0-16.0)
[2019-03-25 17:20] LABS: PTT 27.3 Seconds (22.3-41.8)
[2019-03-25 17:21] LABS: UR EPITHELIAL CELLS <10 /HPF (<10); URINE BACTERIA NEGATIVE /HPF; URINE RBC <10 /HPF (<10); URINE WBC <10 /HPF (<10)
[2019-03-25] MEDS ORDERED: VANCOMYCIN 1 GM/NS 1 GM/250 ML IVPB IV ONE ×2 (17:28→17:31)
[2019-03-25 17:29] LABS: ALB/GLOB RATIO 1.1; ALBUMIN 3.6 g/dL (3.5-5.0); CALCIUM 9.4 mg/dL (8.8-10.2); CREATININE 1.2 mg/dL (0.5-0.9); POTASSIUM 5.4 mmol/L (3.5-5.1); TOTAL BILIRUBIN 0.28 mg/dL (0.20-1.00); TOTAL PROTEIN 6.9 g/dL (6.3-8.3)
[2019-03-25] MEDS ORDERED: ZOSYN 4.5 GM in NS 100 ML IV ONE (17:30)
[2019-03-25] MEDS ORDERED: NS 1,000 ML IV ONE ×2 (17:32)
--- NOTE | 2019-03-25 18:11 | Diag Imaging Result Doc PS360 ---
CHEST-1 VIEW - 03/25/2019 INDICATION: sepsis COMPARISON: 11/02/2018 FINDINGS: There is a displaced fracture of the right humeral neck which was not present on the prior exam. The lungs are clear. Heart size is normal. No pneumothorax or pleural effusion. IMPRESSION: Right humeral neck fracture. Electronically signed by Jordan Andrew 03/25/2019 6:09 PM
[2019-03-25] MEDS: HUMALOG SUBQ SCH (21:12)
[2019-03-25] MEDS: NS 1,000 ML IV SCH (21:31)
[2019-03-25 22:48] LABS: URINE SOURCE CATH
[2019-03-25 23:01] LABS: BILIRUBIN URINE NEGATIVE (NEGATIVE); BLOOD URINE LARGE (NEGATIVE); COLOR ORANGE; GLUCOSE URINE NEGATIVE (NEGATIVE); KETONE URINE 10 mg/dL (NEGATIVE); LEUKOCYTES URINE LARGE (NEGATIVE); NITRITE URINE NEGATIVE (NEGATIVE); PH URINE 8.5; PROTEIN URINE 50 mg/dL (NEGATIVE); SP GRAVITY URINE 1.006; TURBIDITY URINE TURBID (CLEAR); UROBILINOGEN URINE NORMAL (NORMAL)
[2019-03-25 23:40] LABS: URINE WBC TNTC /HPF (<10)
[2019-03-25] MEDS: MORPHINE IV PRN (23:45)
[2019-03-26 00:25] LABS: UR EPITHELIAL CELLS >10 /HPF (<10); URINE BACTERIA 1+ /HPF; URINE RBC TNTC /HPF (<10)
[2019-03-26 00:45] LABS: URINE CASTS NONE SEEN; URINE CRYSTALS NONE SEEN; URINE SMALL ROUND CELLS NONE SEEN; URINE YEAST NONE SEEN
[2019-03-26] MEDS: GLUCOPHAGE PO SCH (05:40)
--- NOTE | 2019-03-26 05:40 | Diag Imaging Result Doc PS360 ---
EXAM: HUMERUS-RIGHT HISTORY: Right Shouler Pain,Fall TECHNIQUE: Right humerus, two views COMPARISON: None. FINDINGS: There is a transverse humeral neck fracture. The head is compacted into the shaft and rotated from its normal location. Possible fracture to the humeral head. IMPRESSION: Humeral neck fracture. Electronically signed by Donny Leonard 03/26/2019 5:38 AM
[2019-03-26] MEDS: PRILOSEC PO SCH (06:12)
[2019-03-26] MEDS: HUMALOG SUBQ SCH ×4 (06:12→21:20)
--- NOTE | 2019-03-26 06:59 | EKG Report ---
Test Performed on : 03/25/2019 5:38:27 PM Test Reason : tachycardia Blood Pressure : / mmHG Vent. Rate : 111 BPM Atrial Rate : 111 BPM P-R Int : 120 ms QRS Dur : 078 ms QT Int : 350 ms P-R-T Axes : 080 027 070 degrees QTc Int : 476 ms Sinus tachycardia. Nonspecific ST abnormality Abnormal ECG When compared with ECG of 29-OCT-2018 11:26, Vent. rate has increased BY 41 BPM Unconfirmed Result
[2019-03-26 07:24] LABS: BASO# 0.06 X1000 (0.0-0.2); BASO% 0.6 % (0.0-0.8); EOS# 0.42 X1000 (0.0-0.7); EOS% 4.3 % (0.0-10.0); HEMATOCRIT 30.7 % (37.0-47.0); HEMOGLOBIN 9.9 g/dL (12.0-16.0); IMM GRAN# 0.03 X1000 (0.0-0.04); IMM GRAN% 0.3 % (0.0-0.5); LYMPH# 2.94 X1000 (1.2-3.4); LYMPH% 30.1 % (20.5-51.1); MCH 30.7 PG (27-31); MCHC 32.2 g/dL (33-37); MCV 95.3 FL (81-99); MONO# 1.11 X1000 (0.11-0.59); MONO% 11.3 % (1.7-9.3); MPV 9.6 FL (7.4-10.4); NEUT# 5.22 X1000 (1.4-6.5); NEUT% 53.4 % (42.2-75.2); PLT 350 X1000 (130-400); RBC 3.22 XMIL (4.2-5.4); RDW 12.7 % (11.5-14.5); WBC 9.78 X1000 (4.8-10.8)
[2019-03-26 07:43] LABS: AGAP 12; ALBUMIN 2.7 g/dL (3.5-5.0); ALKALINE PHOSPHATASE 67 U/L (32-104); BUN 17 mg/dL (8-22); CALCIUM 7.5 mg/dL (8.8-10.2); CHLORIDE 107 mmol/L (98-107); COSMO 279; CREATININE 0.8 mg/dL (0.5-0.9); ESTIMATED GFR > 60; GLUCOSE 105 mg/dL (70-104); GOT 10 U/L (10-30); GPT 5 U/L (10-36); POTASSIUM 4.3 mmol/L (3.5-5.1); SODIUM 139 mmol/L (136-145); TCO2 20 mmol/L (25-35); TOTAL BILIRUBIN 0.19 mg/dL (0.20-1.00); TOTAL PROTEIN 5.3 g/dL (6.3-8.3)
--- NOTE | 2019-03-26 07:59 | HISTORY AND PHYSICAL ---
CHIEF COMPLAINT: I need something for my bladder infection. HISTORY OF PRESENT ILLNESS: This is an 83-year-old female who presents to the emergency room from her primary care physician's office on the instructions of her primary care physician after the son called and asked that the patient be given more antibiotics for urinary tract infection. He stated that her symptoms were not improving. At the time of my exam, the son is not present. When I asked the patient what symptoms she is having, she states I need antibiotics for my bladder. When asked what symptoms she is having she states "I cant control my peepee and I have to wear a diaper" The patient is afebrile. She does have an elevated white count, although her urine reveals negative blood, nitrites, less than 10 red blood cells, white blood cells, and epithelial cells with no bacteria. Her chest x-ray reveals clear lungs although she does have a displaced right humeral neck fracture. On evaluation, she does have dry mucous membranes and poor skin turgor. PAST MEDICAL HISTORY: Diabetes mellitus type 2, colon cancer, and dementia. PAST SURGICAL HISTORY: Colon resection, tumor removed from her right groin, and appendectomy. SOCIAL HISTORY: She denies any alcohol or tobacco use. ALLERGIES: According to the chart are codeine, Naprosyn, red dye, and sulfa. The patient is unaware of allergies at this time. HOME MEDICATIONS: A list will be obtained by the nursing staff and once verified will review and restart as appropriate. REVIEW OF SYSTEMS: Unable to obtain from the patient. PHYSICAL EXAMINATION: GENERAL: This is an 83-year-old female who is sitting up in the bed in the emergency room in no distress. VITAL SIGNS: Blood pressure was 106/72 with a heart rate of 96, respirations are 20, temperature 98.4 degrees. Room air saturations are 96 to 97%. CARDIOVASCULAR: Regular rate and rhythm. S1 and S2 are appreciated. EXTREMITIES: She has no lower extremity edema. Calves are nontender and peripheral pulses are palpable x4 extremities. PULMONARY: Breath sounds are clear. No increased work of breathing noted. Chest rise and fall symmetric to respiration. GASTROINTESTINAL: Abdomen is soft, nontender, and nondistended with bowel sounds in all 4 quadrants. GENITOURINARY: She has no CVA or suprapubic tenderness. She is wearing a diaper. MUSCULOSKELETAL: She has good range of motion to left upper extremity and bilateral lower extremities. Right upper extremity is limited to pain as she does have a right humeral neck fracture. NEUROLOGIC: She is alert. She is oriented to herself. She knows she is at the hospital although she does not know what day it is, or what day she got to the hospital. LABORATORY: WBC is 16 with a hemoglobin of 12.5, hematocrit 37.4, and platelets of 518,000. Sodium is 135, potassium 5.4, and BUN 22. ASSESSMENT: 1. Hyperkalemia. 2. Diabetes mellitus. We will pattern blood glucose with sliding scale insulin. 3. History of asthma. Aware. 4. Right humeral neck fracture. The patient does not remember being evaluated by orthopedics. She has no stabilization of this arm. She does not remember wearing a sling. Consult Orthopedics, and will obtain a right shoulder x-ray. 5. Urinary Incontinence - Outpatient Urology evaluation For DVT prophylaxis, we will use SCD's, GI prophylaxis, and PPI's. Further treatments pending discussion with Dr Devine and hospital course. Patient seen and examined by me face to face, all the laboratory, vitals signs, images were reviewed, patient presented with signs of dehydration, has leucocytosis but no signs of infection, she denies cough, dysuria, abdominal pain, but she does have right shoulder pain with Humeral fracture, apparently this fracture happened 1 1/2 to 3 months ago, as per the patient she went to the hospital, [facility], she is not walking either, her inguinal area is irritated probably due to contact with urine, she is oriented X2, we will treat her hyperkalemia, she will receive fluids, Orthopedic surgery will be consulted, no family at the bedside at the moment of my evaluation, panculture, I agree with the [employer]'s assessment and plan, Chalo Gutierres MD. Dictated by NEYMAR Cobian for Chalo Ny MD cc: NEYMAR Cobian MD [facility]
--- NOTE | 2019-03-26 08:01 | EKG Report ---
Test Performed on : 03/26/2019 00:57:57 AM Test Reason : NO EKG ORDER FOR MUSE Blood Pressure : / mmHG Vent. Rate : 079 BPM Atrial Rate : 079 BPM P-R Int : 148 ms QRS Dur : 070 ms QT Int : 398 ms P-R-T Axes : 056 029 058 degrees QTc Int : 456 ms Sinus rhythm. with marked sinus arrhythmia. with occasional premature ventricular complexes. Otherwise normal ECG When compared with ECG of 25-MAR-2019 17:38, (Unconfirmed) premature ventricular complexes. are now present Confirmed by Kymberly MEEHAN, Arias Rivera ([id number]) on 03/30/2019 7:26:03 PM
[2019-03-26 08:14] LABS: MAGNESIUM 0.9 mg/dL (1.5-2.7)
[2019-03-26] MEDS ORDERED: MAGNESIUM SULFATE 2 GM/S.W.I. 2 GM/50 ML IVPB IV ONE (08:50)
[2019-03-26] MEDS: NS 1,000 ML IV SCH ×2 (09:21→21:20)
[2019-03-26] MEDS: VITAMIN B-12 PO SCH (12:05)
--- NOTE | 2019-03-26 14:07 | PROGRESS NOTE ---
DATE: 03/26/2019 SUBJECTIVE: The patient states that she feels better today. She is more alert. She is oriented to person, place, and time at this time. She does have some pain in her right shoulder. She denies any urinary symptoms. OBJECTIVE: Blood pressure is 129/71, heart rate of 72, respirations are 18, temperature is 98.4 degrees with room air saturations 96 to 97%. Cardiovascular regular rate and rhythm. S1 and S2 appreciated. She has no lower extremity edema with peripheral pulses palpable x4 extremities. Pulmonary breath sounds are clear with no increased work of breathing noted. Chest rises and falls symmetrically with respiration. Chest wall is nontender to palpation. Gastrointestinal: Abdomen is soft, nontender, nondistended with bowel sounds in all 4 quadrants. : Burgess is patent to bedside bag with clear yellow urine draining. LABS: WBC is 9.7 with hemoglobin 9.9, hematocrit 30.7, platelets of 350,000. Sodium 139, potassium 4.3, BUN 17, creatinine 0.8 with a glucose of 105. Her magnesium is 0.9. Urinalysis reveals large leukocytes, too numerous to count white blood cells, too numerous to count red blood cells, greater than 10 epithelial cells with 1+ bacteria. This is consistent with contamination. Microbiology: Urine culture x2 revealed no growth. Blood cultures are pending. PROBLEM LIST: 1. Hyperkalemia. This has resolved. We will continue to monitor labs. 2. Diabetes mellitus. We will continue with pattern blood glucose with sliding scale insulin. 3. History of asthma. Aware. 4. Right humeral head fracture. Orthopedics has been consulted. She does have a sling in use. 5. Hypomagnesemia. We will supplement and recheck labs in the morning. 6. Further treatments pending hospital course. Dictated by NEYMAR Cobian for Chalo Ny MD cc: NEYMAR Cobian MD
--- NOTE | 2019-03-26 17:17 | ORTHOPAEDICS CONSULTATION ---
DATE: 03/26/2019 CHIEF COMPLAINT: Right shoulder pain. HISTORY OF PRESENT ILLNESS: This is an 83-year-old female who came from the emergency department from her primary care doctor's office. She has had a recent urinary tract infection and was not getting better. At that time she reported some right shoulder pain. Orthopedics was consulted to come see the patient at that time. PAST MEDICAL HISTORY: Diabetes type 2, colon cancer, and dementia. PAST SURGICAL HISTORY: She has had colon resection, and appendectomy. SOCIAL HISTORY: She denies alcohol, tobacco, or drug use. ALLERGIES: Listed in her chart include codeine, naproxen, red dye, and sulfa. The patient actually denies allergies when you ask her. MEDICATIONS: Home medications list will need to be obtained by nursing staff. REVIEW OF SYSTEMS: Unable to obtain from patient due to her mental status. PHYSICAL EXAMINATION: General: The patient is awake and sitting in the bed without any discomfort. She is currently in a sling and swath. Vital Signs: Temperature 98.3 degrees, pulse rate 93, respiratory rate 19, blood pressure 131/50, oxygen saturation 96%. Cardiovascular: Regular rate and rhythm. Extremities: Right upper extremity: There is a large bulge to the right shoulder. There is decreased range of motion. There is some tenderness along the shoulder. There is no bruising. There is good sensation to the right upper extremity. There is good radial pulse. There is 4/5 cotton header strength. There is obvious deformity to the right shoulder. Pulmonary: There is equal chest expansion rise and fall. Neurologic: The patient is awake. She is oriented to herself. She does know she is in the hospital, but does not know what city she is in. She is unaware of the pouch maker. LABORATORY DATA: White blood cell 9.78, hemoglobin 9.9, hematocrit 30.7, platelets 350,000. INR 0.87. Sodium 139, potassium 4.3, chloride 107, BUN 17, creatinine 0.8, glucose 105, calcium 7.5, magnesium 0.9. Urine is positive for urinary tract infection. ASSESSMENT: Right humeral head fracture. PLAN: We will plan on keeping Ms. Griffin in a sling and swath at this time. She is not a good surgical candidate at this time due to her dementia and altered mental status. She will need to follow up in the office to be evaluated more thoroughly to see if she is a candidate for future possible shoulder replacement. She is to follow up in office within the next 10 to 14 days for repeat x-rays. Thank you again for this consult. Dictated by NEYMAR Marinelli for Thomas Alcocer MD cc: NEYMAR Marinelli MD
[2019-03-26] MEDS: SENOKOT PO SCH (21:20)
[2019-03-26] MEDS: LIPITOR PO SCH (21:20)
[2019-03-26] MEDS: SYMBICORT 80/4.5 MICROGM INHALER INH SCH (21:22)
[2019-03-26] MEDS: MORPHINE IV PRN (21:27)
--- NOTE | 2019-03-26 23:28 | PROVIDER DOCUMENTATION ---
This chart was entered by Faith Hoffman Scribe, acting as scribe for Montana Loco MD. HPI-Female /OB/Breast - General Chief Complaint: Weakness Stated Complaint: FALL/RT SHOULDER PAIN Time Seen by Provider: 03/25/19 16:37 Source: reports: patient Allergies/Adverse Reactions: Patient Allergies Allergy/AdvReac Type Severity Reaction Status Date / Time codeine [Codeine] Allergy Severe RASH Verified 02/04/18 13:49 naproxen sodium * Allergy Severe SWELLING Verified 02/04/18 13:49 [From Aleve] red dye Allergy Severe RASH Verified 02/04/18 13:49 Sulfa (Sulfonamide Allergy Severe RASH Verified 02/04/18 13:49 Antibiotics) Home Medications: Home Medication List Medication Instructions Recorded Confirmed Last Taken Type ATORVAstatin [Lipitor] 40 mg PO QHS 03/25/19 03/25/19 03/24/19 21:00 History Aspirin EC 81 mg PO DAILY 03/25/19 03/25/19 03/25/19 09:00 History Budesonide/Formoterol Inhaler 2 puff INH RTBID 03/25/19 03/25/19 Unknown History [Symbicort 80/4.5 Microgm Inhaler] Cyanocobalamin (Vitamin B-12) 1,000 mcg PO DAILY 03/25/19 03/25/19 03/25/19 09:00 History [Vitamin B-12] Esomeprazole Magnesium 40 mg PO DAILY 03/25/19 03/25/19 03/25/19 09:00 History Folic Acid 1 mg PO DAILY 03/25/19 03/25/19 03/25/19 09:00 History Hydroxyzine HCl 25 mg PO Q6H PRN PRN 03/25/19 03/25/19 Unknown History Ibuprofen 800 mg PO TID PRN PRN 03/25/19 03/25/19 Unknown History Metformin [Glucophage] 1,000 mg PO BID 03/25/19 03/25/19 03/25/19 09:00 History Nitrofurantoin Macrocrystal 100 mg PO BID 03/25/19 03/25/19 03/25/19 09:00 History [Nitrofurantoin] Ondansetron [Zofran] 4 mg PO Q8H PRN PRN 03/25/19 03/25/19 Unknown History Pseudoephedrine/Brompheniramin 1 ea PO DAILY 03/25/19 03/25/19 03/25/19 09:00 History [[place] 24D Capsule ] Sennosides [Senokot] 1 ea PO BID 03/25/19 03/25/19 03/25/19 09:00 History - History of Present Illness-Female /OB Nature of Presenting Problem: Patient is a 83 year old female who presents with dysuria. Patient was sent from PCP due to failing outpatient treatment for UTI. Denies abdominal pain, nausea and vomiting. denies back pain. report rt arm pain after fall 3 months ago. Does patient report she is ?: No Location of complaint: reports: urethral Radiation: reports: none Quality of Pain: reports: burning Severity in ED: reports: mild Onset/Duration: reports: unsure Timing: reports: still present Urinary Symptoms: reports: dysuria Modifying Factors: improves with: nothing Associated Symptoms: reports: denies symptoms Similar Symptoms Previously?: Yes Recently seen or treated by another doctor?: Yes Review of Systems - Adult - REVIEW OF SYSTEMS - ADULT ROS:: limited per condition Constitutional: reports: no symptoms reported Eyes: reports: no symptoms reported Ears, Nose, Mouth & Throat: reports: no symptoms reported Cardiovascular: reports: no symptoms reported Respiratory: reports: no symptoms reported Gastrointestinal: reports: no symptoms reported Genitourinary: reports: no symptoms reported Musculoskeletal: reports: no symptoms reported Integumentary: reports: no symptoms reported Neurological: reports: no symptoms reported Past History - Adult - PAST MEDICAL HISTORY-ADULT Review of Records: reports: Old Records Reviewed, Nursing Assessment Review, Medications Reviewed, Social history reviewed & non-contributory. Major Childhood Illnesses: reports: denies history Cardiovascular: reports: denies history Respiratory: reports: asthma Gastrointestinal: reports: cancer (colon) Obstetrical/Gynecological: reports: denies history Genitourinary: reports: denies history Musculoskeletal: reports: denies history Neurological: reports: dementia Psychiatric: reports: denies history Endocrine/Immune: reports: Diabetes Other Conditions: reports: denies history - PRIOR SURGERIES/PROCEDURES Surgical/Procedure History: reports: appendectomy, other - IMMUNIZATION STATUS Childhood Immunizations: See Nurse Assessment Flu Vaccine: See Nurse Assessment - FAMILY HISTORY Family History: reviewed, not pertinent - SOCIAL HISTORY Smoking: denies Substance Use: denies Physical Exam-General - PHYSICAL EXAM-ADULT Initial Vital Signs Reviewed: Yes - CONSTITUTIONAL General Appearance: alert, no apparent distress. negative: lethargic, slow to respond - EYES Eyes: PERRL/EOMI - HEAD, EARS, NOSE, MOUTH & THROAT HENMT: normocephalic/atraumatic, moist mucous membranes - RESPIRATORY Respiratory: chest non-tender, lungs clear, normal breath sounds. negative: crackles, rales, rhonchi - CARDIOVASCULAR Cardiovascular: normal peripheral pulses, tachycardia. negative: systolic murmur - GASTROINTESTINAL (ABDOMEN) Abdominal Exam: normal bowel sounds, non tender, soft. negative: guarding, rebound - MUSCULOSKELETAL Back Exam: normal inspection, no CVA tenderness. negative: ecchymosis Extremity: tenderness (rt upper arm) - NEUROLOGIC Neurologic: facial droop (right. chronic per patient.). negative: aphasia, motor weakness - PSYCHIATRIC Psych/Mental Status: negative: oriented x 3 Progress - PLAN OF CARE/RESULTS Progress/Plan/Lab Results: Orders Category Date Time Status Admit - [facility] Routine AdmDCTranf 03/25/19 18:44 Active Activity - Strict Bedrest ORDERED Care 03/25/19 18:44 Active Apply Mechanical Device [QM] ORDERED Care 03/25/19 18:41 Active Cardiac Monitoring DIRECTED Care 03/25/19 16:53 Completed FSBS/Accucheck Result AC + HS Care 03/25/19 18:41 Active Burgess Cath Insertion ORDERED Care 03/25/19 18:37 Active IV Insertion ORDERED Care 03/25/19 16:53 Completed Intake and Output-Strict ORDERED Care 03/25/19 18:44 Active Notify MD of + Sepsis Screen NOW Care 03/25/19 16:53 Completed Notify Physician As Ordered Care 03/25/19 16:53 Active Orthostatic Vital Signs NOW Care 03/25/19 18:47 Active Update & Confirm Home Medicati ROUTINE Care 03/25/19 18:41 Completed Vital Signs Order Q 8-HR ASSESS Care 03/25/19 18:44 Active Z-Document. for Tele Applied ORDERED Care 03/25/19 18:43 Completed Diabetic Diet Diet 03/25/19 18:45 Completed CHEST-1 VIEW [RAD] Stat Exams 03/25/19 16:53 Completed BLOOD CULTURE [BLDCUL] Stat Lab 03/25/19 16:43 Results CBC WITH DIFF [HEME] Routine Lab 03/26/19 06:43 Completed CBC WITH DIFF [HEME] Stat Lab 03/25/19 16:38 Completed CK PROFILE [SP CHEM] Stat Lab 03/25/19 16:38 Completed COMPREHENSIVE METABOLIC PANEL [CHEM] Routine Lab 03/26/19 06:43 Completed COMPREHENSIVE METABOLIC PANEL [CHEM] Stat Lab 03/25/19 16:38 Completed LACTATE, PLASMA [CHEM] Lab 03/25/19 16:38 Completed LACTATE, PLASMA [CHEM] Lab 03/25/19 19:59 Completed LACTATE, PLASMA [CHEM] Lab 03/25/19 22:58 Completed MAGNESIUM [CHEM] Routine Lab 03/26/19 06:43 Completed PROTIME WITH INR [COAG] Stat Lab 03/25/19 16:38 Completed PTT [COAG] Stat Lab 03/25/19 16:38 Completed TROPONIN T Stat Lab 03/25/19 16:38 Completed URINALYSIS W/POSS RFLX CULT [URINALYSIS] Stat Lab 03/25/19 16:48 Completed URINE CULTURE [RM] Routine Lab 03/25/19 16:48 Results 0.9% Sodium Chloride Inj [Ns] 1,000 ml Med 03/25/19 18:45 Active IV 75 mls/hr 0.9% Sodium Chloride Inj [Ns] 1,000 ml Med 03/25/19 17:32 Discontinued IV 999 mls/hr 0.9% Sodium Chloride Inj [Ns] 1,000 ml Med 03/25/19 17:32 Discontinued IV 999 mls/hr Gentamicin 100 mg/Ns Med 03/25/19 17:01 Discontinued 100 mg in 100 ml IV NOW Insulin Lispro [Humalog] Med 03/25/19 21:00 Active See Protocol SUBQ 0700,1100,1600,2100 Omeprazole [Prilosec] Med 03/26/19 07:00 Active 40 mg PO DAILY@0700 Piperacillin/Tazobactam [Zosyn] 4.5 gm Med 03/25/19 17:30 Discontinued 0.9% Sodium Chloride Inj [Ns] 100 ml IV NOW Vancomycin 1 gm/Ns Med 03/25/19 17:28 Discontinued 1 gm in 250 ml IV NOW Vancomycin 1 gm/Ns Med 03/25/19 17:31 Discontinued 1 gm in 250 ml IV NOW Oxygen Device Stat Oth 03/25/19 16:53 Active Telemetry [OM.EQ] Routine Oth 03/25/19 18:41 Active EKG [EKG] Stat Ther 03/25/19 17:29 Draft Transfer/Admit Order [TRANSFER] Routine Transfer 03/25/19 18:58 Completed pt has leukocytosis and meet criteria for sepsis, sepsis protocol initiated. poor historian. need further management inpatient, will admit. Dr. [facility] paged twice to consult him about the fracture, no call back. Result Diagrams: 03/26/19 06:43 03/26/19 06:43 - EKG 1 Time of EKG reading by physician:: 17:38 EKG Read and Signed by:: Jeremiah Jameson EKG Interpretation (*Must complete 3 of following elements*): Abnormal Rate: 111 Rhythm: sinus tachycardia [place]: normal DC Interval: normal Comments: nonspecific ST abnormality. - CONSULTS/PCP/HOSPITALIST Notification #1 *Consult/PCP/Hospitalist*: INSTALLATION SUPERVISOR Celia Strong admitting for Dr. Devine Time Discussed: 18:15 Consult Disposition: Admit (Hx, PE and pt care discussed, admitted.) Departure - Departure Date of Disposition Decision: 03/25/19 Time of Disposition Decision: 18:10 DIAGNOSIS: Sepsis Qualifiers: Sepsis type: sepsis due to unspecified organism Qualified Code(s): A41.9 - Sepsis, unspecified organism Fracture of right humerus Qualifiers: Encounter type: initial encounter Humerus Location: surgical neck Fracture type: closed Disposition: ADMITTED INPATIENT 09 Certified Medical Emergency: Emergent Condition: Stable - Critical Care Note This patient required my direct & personal management of CC.: No Attestation - Physician/ SANA Attestation Patient care was provided by Advanced Practice Provider:: No The physician spent face to face time with patient:: Yes Advanced Practice Provider documentation review:: Supervising physician onsite and consulted in the evaluation and care of this patient. The physician did have a face to face encounter with the patient. This chart was documented by the indicated scribe, (Faith Hoffman Scribe) and accurately reflects the services I performed and decisions made by me, Montana Loco MD, as attested by the provider's signature.
[2019-03-27] MEDS: PRILOSEC PO SCH (06:17)
[2019-03-27] MEDS: HUMALOG SUBQ SCH ×4 (06:17→21:02)
[2019-03-27] MEDS: SYMBICORT 80/4.5 MICROGM INHALER INH SCH ×2 (08:00→19:25)
[2019-03-27 08:09] LABS: AGAP 11; BUN 11 mg/dL (8-22); CALCIUM 8.2 mg/dL (8.8-10.2); CHLORIDE 106 mmol/L (98-107); COSMO 279; CREATININE 0.7 mg/dL (0.5-0.9); ESTIMATED GFR > 60; GLUCOSE 138 mg/dL (70-104); POTASSIUM 3.4 mmol/L (3.5-5.1); SODIUM 139 mmol/L (136-145); TCO2 22 mmol/L (25-35)
[2019-03-27 08:15] LABS: MAGNESIUM 1.4 mg/dL (1.5-2.7); PHOSPHORUS 2.9 mg/dL (2.7-4.5)
[2019-03-27] MEDS: FOLIC ACID PO SCH (08:27)
[2019-03-27] MEDS: VITAMIN B-12 PO SCH (08:27)
[2019-03-27] MEDS: SENOKOT PO SCH ×2 (08:27→21:02)
[2019-03-27] MEDS: GLUCOPHAGE PO SCH ×2 (08:27→17:53)
[2019-03-27] MEDS: ASPIRIN EC PO SCH (08:32)
--- NOTE | 2019-03-27 08:51 | ORTHOPAEDICS PROGRESS NOTE ---
DATE: 03/27/2019 SUBJECTIVE: The patient is a pleasant 83-year-old female who underwent x-rays, which revealed a right displaced femoral fracture. OBJECTIVE: Patient's sling is in place. She is neurovascularly intact distally and able to flex all her fingers. IMPRESSION: Right proximal humeral fracture. PLAN: At this point, the patient seems to be comfortable in her sling. We will have her follow up in the office in 2 weeks and repeat x-rays. cc: Thomas Alcocer MD
[2019-03-27] MEDS ORDERED: KLOR-CON PO ONE (10:22)
[2019-03-27] MEDS ORDERED: MAGNESIUM SULFATE 2 GM/S.W.I. 2 GM/50 ML IVPB IV ONE (11:00)
[2019-03-27] MEDS ORDERED: DESITIN OINTMENT TOP PRN (11:08)
[2019-03-27] MEDS: NS 1,000 ML IV SCH (11:11)
--- NOTE | 2019-03-27 13:22 | HISTORY AND PHYSICAL ---
SUBJECTIVE: The patient states she feels much better today. She is alert and oriented. She said she is having less pain in her right shoulder. She actually feels stronger than she has in awhile. OBJECTIVE: Vital Signs: Blood pressure is 133/74 with a heart rate of 84, respirations 16, temperature 97.6 degrees with room air saturations 96% to 98%. Cardiovascular: Regular rate and rhythm. S1 and S2 appreciated. Pulmonary: Breath sounds are clear with no increased work of breathing noted. Gastrointestinal: Abdomen is soft, nontender, nondistended with bowel sounds in all 4 quadrants. : Burgess is patent to bedside bag with clear yellow urine draining. Neurologic: She is alert oriented x3. LABS: Sodium is 139, potassium 3.4, BUN 11, creatinine 0.7 with a glucose of 138, magnesium is 1.4. Once again, urine cultures x2 revealed no growth. ASSESSMENT AND PLAN: 1. Hyperkalemia. This is resolved. We will continue to follow. 2. Diabetes mellitus. We will continue her care. 3. History of asthma, aware. 4. Right humeral head fracture. Sling is in place. She does have good posterior motor strength to her right hand. She is followed by Orthopedics. 5. Hypomagnesemia. We will continue supplementing and recheck labs in the morning. DISPOSITION: I did discuss with the patient about going home. She states that she has a helper that is there sometimes helping her transfer. She does state that her son and grandson help her stand and exercise her arms and legs at least daily. I called her son Jan and was able to reach him at as other numbers had been disconnected. We did discuss the patient's care at home. He did state that he has a helper that he pays to come in, that he and his grandson are helping in her care. He states that she has been in a wheelchair for "quite some time." We discussed home health and he stated that he had [facility] in the past. He did not want them to come back, and that they would not be allowed in his home as they had contacted [facility] regarding her home situation. I did discuss with him then the possibility of inpatient rehab if physical therapy felt that this was an option for her. He was very agreeable to the. We discussed that physical therapy would be consulted and that we would discuss this after their recommendations. We discussed her complaints of frequent urinary tract infections. I did discuss with the patient what her symptoms were, and today she stated that it hurt on the outside when she pee 'd. On examination, she has a lot of excoriation. She is very tender to palpation and these symptoms can be re-created with outside pressure with palpation to her urethral area. I did not appreciate any carbuncles or see any outward signs, other than irritation. I discussed with the patient and the son that this was not an infection in that urine cultures revealed no growth. This is outside irritation from sitting in diapers and that we would recommend either Calmoseptine or Desitin to be applied frequently to help this area heal, to which they both agreed. I did discuss this with Dr. Devine and plan has been stated above. Further treatments. Dictated by NEYMAR Cobian for Chalo Ny MD cc: NEYMAR Cobian MD [facility]
[2019-03-27] MEDS: LIPITOR PO SCH (21:10)
[2019-03-27] MEDS: MORPHINE IV PRN (21:13)
[2019-03-28] MEDS: NS 1,000 ML IV SCH ×2 (00:27→16:10)
[2019-03-28] MEDS: HUMALOG SUBQ SCH ×4 (06:26→20:18)
[2019-03-28] MEDS: PRILOSEC PO SCH (06:26)
[2019-03-28] MEDS: SYMBICORT 80/4.5 MICROGM INHALER INH SCH ×2 (07:29→19:36)
[2019-03-28 07:34] LABS: AGAP 9; BUN 7 mg/dL (8-22); CHLORIDE 108 mmol/L (98-107); COSMO 278; CREATININE 0.6 mg/dL (0.5-0.9); ESTIMATED GFR > 60; GLUCOSE 146 mg/dL (70-104); MAGNESIUM 1.3 mg/dL (1.5-2.7); PHOSPHORUS 1.9 mg/dL (2.7-4.5); POTASSIUM 4.3 mmol/L (3.5-5.1); SODIUM 139 mmol/L (136-145); TCO2 22 mmol/L (25-35)
[2019-03-28] MEDS: FOLIC ACID PO SCH (08:56)
[2019-03-28] MEDS: SENOKOT PO SCH ×2 (08:56→20:16)
[2019-03-28] MEDS: ASPIRIN EC PO SCH (08:56)
[2019-03-28] MEDS: GLUCOPHAGE PO SCH ×2 (08:56→16:11)
[2019-03-28] MEDS: VITAMIN B-12 PO SCH (08:56)
[2019-03-28] MEDS ORDERED: SODIUM PHOSPHATE 20 MMOL in NS 250 ML IV ONE (09:57)
[2019-03-28] MEDS ORDERED: MAGNESIUM SULFATE 2 GM/S.W.I. 2 GM/50 ML IVPB IV ONE (09:57)
--- NOTE | 2019-03-28 10:51 | PROGRESS NOTE ---
DATE: 03/28/2019 SUBJECTIVE: This patient is feeling better but she feels generalized weakness. I told her that we need to work more with physical therapy and occupational therapy. Vital signs are stable as well as lab work. I will replace her magnesium and phosphorus. OBJECTIVE: Vital Signs: Temperature 97.6 degrees, pulse 76, respiratory rate 16, blood pressure 133/48, oxygen saturation 98 on room air. HEENT: Head normocephalic. No trauma. PERRLA. Neck: Supple. No JVD. No masses. Central trachea. Chest: Clear to auscultation. No wheezing. No rales. Abdomen: Soft, nontender, nondistended. No hepatosplenomegaly. Extremities: She has a sling in place. She is able to move her hand. I do not see any vascular or neurological problems at this moment. She is followed by orthopedic surgery. Laboratory: Sodium 139, potassium 4.3, chloride 108, bicarbonate 22, BUN 7, creatinine 0.6, glucose 146, calcium 8, phosphorus 1.9, magnesium 1.3. ASSESSMENT AND PLAN: 1. Hyperkalemia, resolved. 2. Type 2 diabetes. She seems to be stable. Continue same management. 3. History of asthma. Aware. 4. Right humeral head fracture. Sling is in place. No vascular or neurological problems at this moment. She has been followed by orthopedic surgery and they will monitor this patient as an outpatient. 5. Hypophosphatemia with hypomagnesemia. I will replace both electrolytes. 6. Generalized weakness. It looks like this patient has not been walking for a good period of time. I do not have any specific cause. I have requested occupational therapy and physical therapy to evaluate this patient. Yesterday, we communicated with his son and he agreed with physical therapy. We will try to get inpatient rehab if physical therapy feels that this is an option for her. cc: Chalo Ny MD
[2019-03-28] MEDS: MORPHINE IV PRN (11:14)
[2019-03-28] MEDS: ZOFRAN IV PRN (19:01)
[2019-03-28] MEDS: LIPITOR PO SCH (20:16)
[2019-03-29] MEDS: MORPHINE IV PRN ×2 (00:20→09:20)
[2019-03-29] MEDS: HUMALOG SUBQ SCH ×4 (05:59→20:25)
[2019-03-29] MEDS: NS 1,000 ML IV SCH ×2 (06:01→20:25)
[2019-03-29] MEDS: PRILOSEC PO SCH (06:01)
[2019-03-29] MEDS: SYMBICORT 80/4.5 MICROGM INHALER INH SCH ×2 (07:36→19:22)
[2019-03-29 08:18] LABS: AGAP 10; ALBUMIN 2.6 g/dL (3.5-5.0); ALKALINE PHOSPHATASE 67 U/L (32-104); BUN 8 mg/dL (8-22); CALCIUM 8.4 mg/dL (8.8-10.2); CHLORIDE 108 mmol/L (98-107); COSMO 278; CREATININE 0.9 mg/dL (0.5-0.9); ESTIMATED GFR 60; GLUCOSE 110 mg/dL (70-104); GOT 7 U/L (10-30); GPT < 5 U/L (10-36); MAGNESIUM 1.5 mg/dL (1.5-2.7); POTASSIUM 5.2 mmol/L (3.5-5.1); SODIUM 140 mmol/L (136-145); TCO2 22 mmol/L (25-35); TOTAL BILIRUBIN 0.18 mg/dL (0.20-1.00); TOTAL PROTEIN 5.3 g/dL (6.3-8.3)
[2019-03-29 08:49] LABS: BASO# 0.04 X1000 (0.0-0.2); BASO% 0.4 % (0.0-0.8); EOS# 0.47 X1000 (0.0-0.7); HEMATOCRIT 30.4 % (37.0-47.0); HEMOGLOBIN 9.5 g/dL (12.0-16.0); IMM GRAN# 0.03 X1000 (0.0-0.04); IMM GRAN% 0.3 % (0.0-0.5); LYMPH# 3.23 X1000 (1.2-3.4); LYMPH% 34.5 % (20.5-51.1); MCH 30.8 PG (27-31); MCHC 31.3 g/dL (33-37); MCV 98.7 FL (81-99); MONO# 0.98 X1000 (0.11-0.59); MONO% 10.5 % (1.7-9.3); MPV 10.1 FL (7.4-10.4); NEUT# 4.62 X1000 (1.4-6.5); NEUT% 49.3 % (42.2-75.2); PLT 361 X1000 (130-400); RBC 3.08 XMIL (4.2-5.4); RDW 13.3 % (11.5-14.5); WBC 9.37 X1000 (4.8-10.8)
[2019-03-29 08:57] LABS: EOS 2 % (1-10); LYMPHS 46 % (21-51); MONO 10 % (1-9); SEGS 42 % (42-75)
[2019-03-29] MEDS: VITAMIN B-12 PO SCH (09:21)
[2019-03-29] MEDS: ASPIRIN EC PO SCH (09:22)
[2019-03-29] MEDS: SENOKOT PO SCH ×2 (09:22→20:25)
[2019-03-29] MEDS: FOLIC ACID PO SCH (09:23)
[2019-03-29] MEDS: GLUCOPHAGE PO SCH ×2 (09:23→16:14)
[2019-03-29] MEDS: LIPITOR PO SCH (20:25)
[2019-03-30] MEDS: HUMALOG SUBQ SCH ×4 (06:08→22:34)
[2019-03-30] MEDS: PRILOSEC PO SCH (06:08)
[2019-03-30 07:27] LABS: AGAP 10; BUN 7 mg/dL (8-22); CALCIUM 8.6 mg/dL (8.8-10.2); CHLORIDE 110 mmol/L (98-107); COSMO 283; CREATININE 0.6 mg/dL (0.5-0.9); ESTIMATED GFR > 60; GLUCOSE 133 mg/dL (70-104); POTASSIUM 4.5 mmol/L (3.5-5.1); SODIUM 142 mmol/L (136-145); TCO2 22 mmol/L (25-35)
[2019-03-30] MEDS: SYMBICORT 80/4.5 MICROGM INHALER INH SCH ×2 (08:01→19:28)
[2019-03-30] MEDS: VITAMIN B-12 PO SCH (09:10)
[2019-03-30] MEDS: ASPIRIN EC PO SCH (09:10)
[2019-03-30] MEDS: SENOKOT PO SCH ×2 (09:10→22:34)
[2019-03-30] MEDS: FOLIC ACID PO SCH (09:10)
[2019-03-30] MEDS: GLUCOPHAGE PO SCH ×2 (09:10→16:10)
[2019-03-30] MEDS: NS 1,000 ML IV SCH (09:13)
--- NOTE | 2019-03-30 12:26 | DISCHARGE SUMMARY ---
ADMISSION DATE: 03/25/2019 DISCHARGE DATE: 03/30/2019 PRIMARY CARE PHYSICIAN: Dr. Helton. ADMISSION DIAGNOSES: 1. Hyperkalemia. 2. Diabetes. 3. History of asthma. 4. Right humeral neck fracture. 5. Urinary incontinence. DISCHARGE DIAGNOSES: 1. Hyperkalemia resolved. 2. Type 2 diabetes stable. 3. History of asthma. 4. Right humeral head fracture. 5. Generalized weakness. SUMMARY OF FINDINGS: This is an 83-year-old female who presented to the emergency room from her primary care physician's office after the son called and asked that the patient be given more antibiotics for a UTI. He stated that her symptoms were not improving, but at the time she was admitted the son was not present. When I asked the patient what symptoms she was having, she states "I need antibiotics for my bladder" stating "I can't control my peepee and I have to wear a diaper". She did have an elevated white count, but her urine revealed negative blood. Nitrates were less than 10, red blood cells, white blood cells, and epithelial cells with no bacteria. Her chest x-ray revealed clear lungs although she did have a displaced right humeral neck fracture. She was noted to have dry mucous membranes and poor skin turgor. She was admitted and evaluated by Orthopedics, and placed in a sling. Her urine culture grew out no growth. Blood cultures grew out no growth. Orthopedics feels that she is stable at this time, and can follow up in their office in 2 weeks to have repeat x-rays. It is noted that the patient does not want to go to Rehab, but we have evaluated the patient and she is also a [facility] case that recommends that she goes to Rehab. It is in our recommendation that the patient go to Rehab for physical therapy and closer monitoring so she will be discharged to Rehab today. DISCHARGE MEDICATIONS: Aspirin 81 mg p.o. daily, atorvastatin 40 mg p.o. at bedtime, Symbicort 80/4.5 2 puff inhalation b.i.d., vitamin B12 1000 mcg p.o. daily, folic acid 1 mg p.o. daily, hydroxyzine 25 mg p.o. q.6 h p.r.n., metformin 1000 mg p.o. b.i.d., Senokot 1 p.o. b.i.d., Desitin ointment topically p.r.n.,omeprazole magnesium 40 mg p.o. daily, Percocet 7.5 1 p.o. q.4 h. p.r.n. FOLLOW UP: She will follow up with her Primary Care Physician once she completes her rehab stay, and she will need to follow up with Orthopedics in the next 2 weeks for followup x-rays per their recommendation. This is a 35 minute discharge. Dictated by NEYMAR Cantu for Jimmie Rivas MD cc: MD Zayda Dias CRNP Initially planned for discharge today pending bed availability but on further discussion with social work, discharge placement will be more complicated and potentially take some time. remains medically stable. R arm remains in sling on exam. addendum to follow once placement is obtained. TOMER
[2019-03-30] MEDS: ZOFRAN IV PRN (17:29)
[2019-03-30] MEDS: LIPITOR PO SCH (20:16)
[2019-03-30] MEDS: ATARAX PO PRN (22:10)
--- NOTE | 2019-03-30 22:27 | PROGRESS NOTE ---
DATE: 03/29/2019 SUBJECTIVE: Patient is sitting comfortably in bed. Just complains of a little bit of back pain and right shoulder pain. She is tolerating p.o. She is oriented x2, she is not oriented to time. She is able to recognize family members at the bedside, her son. No acute events overnight. OBJECTIVE: Vital signs: Temperature 98, pulse 73, respiratory rate 14, blood pressure 136/52, oxygen saturation 93% on room air. HEENT: Head normocephalic, atraumatic. PERRLA. Neck: Supple, no JVD. No masses felt to her trachea. Chest: Clear to auscultation. No wheezing, no rales. Right shoulder pain, she is using her sling. Abdomen: Soft, nontender, nondistended. No hepatosplenomegaly. Extremities: She has a sling in place. She is move her hand. Vascular: No problems. LABORATORY: WBC 9.3, hemoglobin 9.5, hematocrit 30.4, platelets 261. Sodium 140, potassium 5.2, chloride 108, bicarbonate 22, BUN 8, creatinine 0.9. Glucose 110, calcium 8.4, phosphorus 3, magnesium 1.5, AST 7, ALT less than 5, alkaline phosphatase 67, albumin 2.6. ASSESSMENT AND PLAN: 1. Hyperkalemia. Resolved. Slightly elevated today but we will just monitor. 2. Type 2 diabetes. She seems to be stable, continue same management. 3. Apparent history of asthma, aware. Not having breathing problems at this point. 4. Right humeral head fracture. She has a sling in place. I do not see any problems at this moment, just pain on the right shoulder. Followed by Orthopedic Surgery department. They will monitor this patient as an outpatient. 5. Hypophosphatemia with hypomagnesemia. This seems to be within normal limits today. 6. Acute kidney injury, resolved. 7. History of superior and inferior pubic rami fracture in November 2018, aware. As per the patient, she is not able to walk. 8. 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 Aware, this has been documented and MRI done on 10/30/2018. 9. Excoriation in the perineal area, likely due to urine. We will continue with cream in that area. I had an extensive conversation with the patient and the son at the bedside, as per the son, she had this fracture on right humerus 1-10/14 or 3 months ago. As per the son, she went to [facility] but he does not know too much about it. I reviewed all the records from this patient and I did not see any documentation from that fracture before, I have a chest x-ray from October 2018 that did not show that fracture. This time, she came in with some dehydration and acute kidney injury, electrolyte imbalance, including hypophosphatemia, hyperkalemia, and hypermagnesemia. As per the son, she has been in rehab a couple times, and also he had a company at home, [employer], but he said that they stopped working and he does not know why. As per the son, he is doing some physical activity with her at home. He is helping her to move her arms and legs, but the patient is refusing to stand up and actually this patient has been refusing to stand up during this hospitalization as well. As per the son, he saw her standing up at home at least once, but she denies that. He believes she can stand up but she just does not want to. It looks like [facility] has been involved before with this patient and the family, but I am not quite sure about it, director social is trying to find out what happened. As per the son, also he hired a person to help her with her activities. I have been calling her son during the morning, but he came in at noon to the hospital. His phone number is [phone]. He is no longer the phone number listed on our emergency contact. cc: Chalo Ny MD
[2019-03-31] MEDS: NS 1,000 ML IV SCH ×2 (05:35→17:09)
[2019-03-31] MEDS: HUMALOG SUBQ SCH ×4 (06:13→21:05)
[2019-03-31] MEDS: PRILOSEC PO SCH (06:13)
[2019-03-31 07:27] LABS: AGAP 4; ALBUMIN 2.9 g/dL (3.5-5.0); BUN 7 mg/dL (8-22); CALCIUM 8.9 mg/dL (8.8-10.2); CHLORIDE 107 mmol/L (98-107); COSMO 280; CREATININE 0.7 mg/dL (0.5-0.9); ESTIMATED GFR > 60; GLUCOSE 113 mg/dL (70-104); MAGNESIUM 1.2 mg/dL (1.5-2.7); PHOSPHORUS 2.5 mg/dL (2.7-4.5); POTASSIUM 4.6 mmol/L (3.5-5.1); SODIUM 141 mmol/L (136-145); TCO2 30 mmol/L (25-35)
[2019-03-31] MEDS: SYMBICORT 80/4.5 MICROGM INHALER INH SCH ×2 (07:34→19:57)
[2019-03-31] MEDS: FOLIC ACID PO SCH (09:04)
[2019-03-31] MEDS: VITAMIN B-12 PO SCH (09:04)
[2019-03-31] MEDS: SENOKOT PO SCH ×2 (09:04→23:42)
[2019-03-31] MEDS: ASPIRIN EC PO SCH (09:04)
[2019-03-31] MEDS: GLUCOPHAGE PO SCH ×2 (09:06→16:49)
[2019-03-31] MEDS ORDERED: MAGNESIUM SULFATE 2 GM/S.W.I. 2 GM/50 ML IVPB IV ONE (14:59)
--- NOTE | 2019-03-31 19:31 | PROGRESS NOTE ---
DATE: 03/31/2019 INTERVAL HISTORY: The patient's pain is better controlled. No new complaints. No acute events overnight. Remains mildly confused. Does appear to be, on discussion, more amenable to discharge to rehab now. REVIEW OF SYSTEMS: Twelve point review of systems negative except as per interval history. LABS: Basic metabolic panel unremarkable aside from glucose 113 to 157, phosphorous 2.5, magnesium 1.2. VITAL SIGNS: T-max 98.0 degrees, pulse 93, respirations 12, blood pressure 147/72, O2 saturation 96% on room air. PHYSICAL EXAMINATION: General: No acute distress. Vital signs: As above. HEENT: Normocephalic, atraumatic. Moist mucous membranes. No cervical adenopathy. Cardiovascular: Regular rate and rhythm. No murmurs, rubs, or gallops. Pulmonary: Clear to auscultation bilaterally. No wheezing, rales, or rhonchi noted. Abdomen: Soft, nontender, nondistended. Bowel sounds positive. Extremities: Right arm remains in a sling. Good mobility of both hands. Peripheral pulses intact. Neurologic: Cranial nerves grossly intact. Right arm motion limited by pain. Moderate global weakness, but no focal deficits identified. Psychiatric: Slightly flat affect. Awake, alert, oriented to person but not place or time today. Cooperative and conversation is largely appropriate. ASSESSMENT AND PLAN: 1. Right humeral head fracture. Sling in place. Orthopedics has evaluated and did not plan any surgical intervention in the near future. 2. Perineal excoriation, likely due to urine incontinence. Continue cream/powder to affected area. 3. Hyperkalemia, resolved. 4. Hypomagnesemia. Will replete and monitor. 5. Diabetes. Reasonable control of sugars so far. Monitor. 6. Generalized weakness/asthenia. Patient with history of stroke, although no clear focal deficits at this point. Also history of pubic fracture and now with humerus fracture. Gently pretty deconditioned and R reports living conditions were fairly deplorable with bed bugs and significant debris. Family is attempting to rectify her living situation. Attempting to get rehab placement in the meantime. The patient was initially quite resistant to but now appears to be more amenable. We strongly recommend rehab for her.
[2019-03-31] MEDS: LIPITOR PO SCH (21:04)
[2019-03-31] MEDS: ATARAX PO PRN (21:04)
[2019-04-01] MEDS: HUMALOG SUBQ SCH ×3 (06:44→15:30)
[2019-04-01] MEDS: NS 1,000 ML IV SCH (06:44)
[2019-04-01] MEDS: PRILOSEC PO SCH (06:44)
[2019-04-01] MEDS: SYMBICORT 80/4.5 MICROGM INHALER INH SCH (08:08)
[2019-04-01] MEDS: ASPIRIN EC PO SCH (09:55)
[2019-04-01] MEDS: GLUCOPHAGE PO SCH ×2 (09:55→16:39)
[2019-04-01] MEDS: SENOKOT PO SCH ×2 (09:56→09:59)
[2019-04-01] MEDS: FOLIC ACID PO SCH (09:56)
[2019-04-01] MEDS: VITAMIN B-12 PO SCH (09:56)
[2019-04-01] MEDS: PERCOCET-10 PO PRN ×2 (11:39→14:46)
[2019-04-01] MEDS: ZOFRAN IV PRN (11:42)
--- NOTE | 2019-04-01 13:29 | DISCHARGE SUMMARY ---
ADMISSION DATE: 03/25/2019 DISCHARGE DATE: 04/01/2019 ADDENDUM: Previous discharge delayed because of placement issues. Informed that placement will likely be obtained today. The patient remains globally weak. She has had pelvic fracture x2, and now with right humerus fracture. Both stemming from falls. Patient has had multiple falls since her stroke in October. Likely, her falls are due to balance issues or subtle deficit from her stroke. She otherwise remains stable. Much more agreeable to placement now. Anticipate discharge whenever bed can be obtained. No changes in medications.
[2019-04-01 15:24] VITALS: BP 121/66
--- NOTE | 2019-04-01 22:13 | PROGRESS NOTE ---
DATE: 03/30/2019 INTERVAL HISTORY: The patient is still complaining of some right arm pain. Remains globally weak. No new complaints. No other acute events overnight. Discussed case with Social Work/Case Management. The patient is reluctant to go to rehab, but R is involved in her case due to the state of her house and lack of social support and is strongly recommending rehab. We also strongly recommend rehab. Initially there was some thought that this might be resolved today, but now it appears to be a more prolonged course. REVIEW OF SYSTEMS: A 12-point review of systems was negative except as noted in the interval history. LABORATORY DATA: Sodium 142, potassium 4.5, BUN 7, creatinine 0.6, glucose 133 to 170. PHYSICAL EXAMINATION: Vital Signs: T max 98.2, pulse 87, respirations 14, blood pressure 168/62, 02 saturation 99% on room air. General: No acute distress. HEENT: Normocephalic, atraumatic. Moist mucous membranes. Neck: No cervical lymphadenopathy. Cardiovascular: Regular rate and rhythm. No murmurs, rubs or gallops. Pulmonary: Clear to auscultation bilaterally. No wheezes, rales, or rhonchi noted. Abdomen: Soft and nontender. Bowel sounds positive. Extremities: The right arm remains in a sling. Peripheral pulses intact. No clubbing or cyanosis. Neurologic: Cranial nerves grossly intact. Significant global weakness but no obvious focal deficits. Psychiatric: Normal mood. Speech slow but appropriate. Cooperative. Currently oriented x3. Skin: No new rashes or lesions identified. ASSESSMENT/PLAN: 1. Right humeral head fracture. Sling in place. Orthopaedic with no plans for surgical intervention at this time. They plan on following her as an outpatient. 2. Significant generalized weakness. The patient reportedly has been nonambulatory for quite some time. Lives by herself. Reportedly her home was in pretty terrible condition. R now involved. Placement pending. Patient is reluctant to go to rehab. 3. Hyperkalemia, resolved. Will monitor. 4. Type 2 diabetes. Glucose controlled. Will monitor. 5. Asthma. No sign of exacerbation at this time. Monitor. 6. Hypophosphatemia and hypomagnesemia. Recheck pending, status post repletion. Will monitor.
== END 2019-04-01 18:27 | DRG 641 ==
LOC: ED 16:10 → 3N 19:43 → SUATTDRO 19:43 → 3N 03-26 18:14
PROVIDERS: ATTEND Internal Medicine
CPT/HCPCS: 51701; 71010; 71045; 73060; 80048; 80053; 80069; 81001; 82550; 82948; 83605; 83735; 84100; 84484; 85025; 85610; 85730; 87040; 87088; 93005; 93010; 94640; 94761; 96365; 96367; 97110; 97116; 97162; 97166; 97530; 97535; 99285; A9270; J1580; J1815; J2270; J2405; J2543; J3370; J3475; J7030; J7050; P9612; XXXXX